=== PATIENT | female | born 1975 | race Caucasian/White ===

== ENCOUNTER 2018-05-01 17:42 | Emergency (ER) | payer BC, SELFPAY ==
[2018-05-01 17:51] VITALS: BP 214/109; PULSE 86; RESP 16; TEMP 36.8; O2SAT 99
--- NOTE | 2018-05-01 18:12 | ED.GENADUL_ITS ---
Disposition Clinical Impression: Finger swelling, Bug bite Disposition: HOME Condition: Stable Instructions: Swollen Joint (ED) Additional Instructions: Encourage rest, ice, elevation. Tylenol and/or ibuprofen as needed for discomfort. You appear to have a bug bite on the lateral aspect of her finger. This may have been what caused the swelling. If you develop redness, warmth, drainage, fever/chills, increased pain or other new/worsening symptoms please seek care urgently once again. Follow-up with primary care in 1 week if symptoms have not resolved. Referrals: Iglesia Luke MD [Primary Care Provider] - Medical Decision Making - Medical Decision Making Patient presents today with chief complaint of swelling to the proximal fifth digit on her right hand. On exam, pain and visualize what appears to be a bug bite along the ulnar side of the digit. She does have some mild circumferential soft tissue swelling around the digit. No pain with palpation. Ligamentously intact on exam. Good extension flexion of the digit against resistance. No sensory deficit. No evidence of trauma. No apparent palpation proximally over the fifth metacarpal. Advised the patient that at this time, the swelling appears to be most consistent with bug bite. Patient reports that the swelling has been improving. Do not feel that any acute intervention is warranted. Advised rest, ice, elevation. Advised Tylenol and/or ibuprofen as needed for discomfort. Patient's blood pressure was noted to be elevated at 219 /109. Patient reported to nursing staff that she expected to be elevated as it typically is. When she was here last blood pressure is. At times he was here last hemoglobin was 6 and she was admitted for abnormal uterine bleeding. Blood pressure was rechecked and found to be 166/90. This is within the patient 's typical range. Advised that she follow-up with primary care next week if symptoms persist and to discuss blood pressure. We discussed new/worsening symptoms when to seek care urgently once again. All of her questions and concerns were addressed and she is in agreement this plan. History of Present Illness - General Chief complaint: Orthopedic Stated complaint: SWOLLEN/PAINFUL FINGER Time Seen by Provider: 05/01/18 17:43 Source: patient, RN notes reviewed Mode of arrival: ambulatory Limitations: no limitations - History of Present Illness Initial comments: This is a 43-year-old [id number] female presenting today with chief complaint of swelling fifth digit of the right hand. She denies any trauma. Reports the swelling came on insidiously while at work today. She denies any pain. No altered sensation. Denies any new exposure. Patient reports that overall the swelling has improved since she initially noticed it. Has not attempted any treatment for this. - Related Data Ibuprofen [Advil] 200 mg PO PRN 06/12/15 Multivitamin [Daily Multiple Vitamin] 1 each PO DAILY 02/19/17 Iron 28 mg PO BID 03/06/17 Medroxyprogesterone Acetate 20 mg PO DAILY #30 tab 02/12/18 Aspirin/Acetaminophen/Caffeine [Excedrin Extra Strength Caplet] 2 tab PO PRN PRN 05/01/18 Allergies Allergy/AdvReac Type Severity Reaction Status Date / Time Sulfa (Sulfonamide AdvReac Intermediate GI problems Unverified 05/01/18 17:54 Antibiotics) Review of Systems Constitutional: no symptoms reported Respiratory: no symptoms reported Musculoskeletal: as per HPI Skin: as per HPI. denies: rash, lesions, change in color Neurological: as per HPI Past Medical History - Past Medical History Menorrhagia, anemia General Exam - General Limitations: no limitations General appearance: alert, in no apparent distress - Respiratory Respiratory exam: Present: normal lung sounds bilaterally. Absent: respiratory distress - Cardiovascular Cardiovascular Exam: Present: regular rate, normal rhythm, normal heart sounds - Extremities Exam Extremities exam: Present: full ROM, normal capillary refill, joint swelling. Absent: normal inspection (On exam, patient is noted to have minimal swelling to the proximal aspect of the fifth digit right hand. Along the ulnar side of the digit is what appears to be a bug bite with a circumscribed small area of erythema with central punctate wound.), tenderness - Neurological Exam Neurological exam: Present: alert, normal gait. Absent: motor sensory deficit - Psychiatric Psychiatric exam: Present: normal affect, normal mood - Skin Skin exam: Present: warm, dry. Absent: normal color (As above) Course Vital Signs - 24 hr 05/01/18 17:51 Temperature 36.8 C Pulse 86 Respiratory 16 Rate Blood Pressure 214/109 Pulse Oximetry 99
[2018-05-01 18:25] VITALS: BP 166/90
== END 2018-05-01 18:37 | disposition home or self-care (01) ==
PROVIDERS: Emergency Provider Emergency Medicine; PCP Internal Medicine
DX: S60.476A Other superficial bite of right little finger, initial encounter (principal); M79.89 Other specified soft tissue disorders; W57.XXXA Bitten or stung by nonvenomous insect and other nonvenomous arthropods, initial encounter
CPT/HCPCS: 99282

== ENCOUNTER 2018-05-08 16:55 | Outpatient (REF) | payer BC, SELFPAY ==
[2018-05-08 22:45] LABS: Abs Immature Grans 0.03 k/cumm (0.0-0.09); Absolute Basophil Count 0.08 k/cumm (0.0-0.2); Absolute Eosinophil Count 0.35 k/cumm (0.0-0.7); Absolute Lymphocyte Count 2.07 k/cumm (1.2-3.4); Absolute Monocyte Count 0.73 k/cumm (0.11-0.7); Absolute Neutrophil Count 8.55 k/cumm (1.2-6.7); Basophils % 0.7; HCT 43.6 % (36.0-46.0); HGB 13.3 g/dL (12.0-15.5); Immature Grans % 0.3; Lymphocytes % 17.5; Mean Corp. HGB Concentration 30.5 g/dL (32.0-36.0); Mean Corpuscular Hemoglobin 23.4 pg (27.0-33.0); Mean Corpuscular Volume 76.6 fL (80-95); Mean Platelet Volume 10.2 fL (8.0-11.0); Monocytes % 6.2; Neutrophils % 72.3; Platelet Count 245 x1000/uL (130-400); RBC 5.69 m/cumm (4.00-5.20); RBC Distribution Width 16.2 % (11.7-14.6); White Blood Cell Count 11.83 k/cumm (4.4-10.8)
[2018-05-08 22:48] LABS: Iron 23 ug/dL (50-175); Total Iron Binding Capacity 426 ug/dL (250-450); Transferrin Sat 5 % (15-50)
[2018-05-08 23:00] LABS: ALT 27 U/L (12-78); AST 18 U/L (15-37); BUN 12 mg/dL (7-18); CREATININE 0.92 mg/dL (0.55-1.02); Calcium 8.6 mg/dL (8.5-10.1); Chloride 106 mmol/L (98-107); Cholesterol 180 mg/dL (50-200); Ferritin 19 ng/mL (8-388); Glucose 103 mg/dL (70-100); HDL Cholesterol 48 mg/dL (40-60); LDL CHOLESTEROL 116 mg/dL (<100); Potassium 4.1 mmol/L (3.5-5.1); Sodium 141 mmol/L (136-145); Triglyceride 135 mg/dL (30-150)
== END 2018-05-08 16:56 ==
LOC: NCHCN 16:55
PROVIDERS: PCP Internal Medicine; Visit Provider Nurse Practitioner Family
DX: D64.9 Anemia, unspecified (principal); M79.604 Pain in right leg; R01.1 Cardiac murmur, unspecified; I10 Essential (primary) hypertension; R22.9 Localized swelling, mass and lump, unspecified
CPT/HCPCS: 80048; 80061; 83721; 82728; 83540; 83550; 84450; 84460; 85025

== ENCOUNTER 2018-10-27 08:53 | Outpatient (REF) | payer BC, SELFPAY ==
[2018-10-27 13:49] LABS: HCT 41.1 % (36.0-46.0); HGB 13.6 g/dL (12.0-15.5); Mean Corp. HGB Concentration 33.1 g/dL (32.0-36.0); Mean Corpuscular Hemoglobin 28.6 pg (27.0-33.0); Mean Corpuscular Volume 86.5 fL (80-95); Mean Platelet Volume 10.3 fL (8.0-11.0); Platelet Count 180 x1000/uL (130-400); RBC 4.75 m/cumm (4.00-5.20); RBC Distribution Width 13.6 % (11.7-14.6); White Blood Cell Count 8.82 k/cumm (4.4-10.8)
[2018-10-27 14:15] LABS: Iron 58 ug/dL (50-175)
[2018-10-27 14:26] LABS: TSH (W/Ref FT4) 1.46 uIU/mL (0.358-3.74)
== END 2018-10-27 09:13 ==
LOC: NCHCN 08:53
PROVIDERS: PCP Internal Medicine; Visit Provider Nurse Practitioner Family
DX: I10 Essential (primary) hypertension (principal); D64.9 Anemia, unspecified; F41.9 Anxiety disorder, unspecified; N92.0 Excessive and frequent menstruation with regular cycle; E66.9 Obesity, unspecified
CPT/HCPCS: 85027; 83540; 84443

== ENCOUNTER 2019-01-14 17:22 | Outpatient (REF) | payer BC, SELFPAY ==
--- NOTE | 2019-01-14 16:30 | PAPFT_PTH ---
PATIENT: Sosa Francis LOC: [facility] U#:[id number] AGE/SX: 43/F ROOM: RE01/14/[address]: Iglesia Luke : 1975 BED: DIS: 01/14/2019 SPEC #: [id number] RECD: 01/14/19 17:38 STATUS: NNAMDI REAna #: [id number] MARSHA: 01/14/19 16:[address]: Iglesia Luke DEPT: [facility] Cytology RECD BY: Madison Lujan Tissues: 1 - CX/ENDOCX FOR PAP SMEARS Procedures: PAP THIN PREP/UVM Screening HPV DNA PROBE Comments: [id number]
== END 2019-01-14 17:42 ==
LOC: LBN 17:22
PROVIDERS: PCP Internal Medicine; Visit Provider Internal Medicine
DX: Z12.4 Encounter for screening for malignant neoplasm of cervix (principal); Z11.51 Encounter for screening for human papillomavirus (HPV)
CPT/HCPCS: 88142; 87624

== ENCOUNTER 2019-02-16 01:05 | Outpatient (CLI) | payer BC, SELFPAY ==
--- NOTE | 2019-02-16 06:53 | DI.US_ITS ---
SYMPTOM/DIAGNOSIS: INTRAMURAL FIBROIDS, CHECK SIZE D25.5 PELVIC ULTRASOUND: A transabdominal and transvaginal examination was carried out. The uterus measures 10.6 x 6.1 x 6.4 cm with an endometrial stripe thickness of 18.2 mm. An anterior fundal fibroid measures 1.8 x 1.6 x 2.2 cm Nabothian cysts are identified, the largest of which has a diameter of 2 cm. The right ovary was not visualized. The left ovary measures 5.5 x 3.8 x 5.6 cm and contains a 4.4 x 3.7 x 4.6 cm cyst. The kidneys are unremarkable. There is no evidence of abdominal free fluid. SUMMARY: Suboptimal examination due to the patient's body habitus revealing a 1.8 x 1.6 x 2.2 cm fibroid and a 4.4 x 3.7 4.6 cm left ovarian cyst. Note is made of nonvisualization of the right ovary.
--- NOTE | 2019-02-16 09:17 | DI.MAMMO_ITS ---
SYMPTOM/DIAGNOSIS: SCREENING, Z12.31 MAMMOGRAMS: Mammograms were interpreted according to the usual protocol including computer analysis with CAD system, tomosynthesis and C view imaging. Comparison is with prior examinations. No suspicious masses or microcalcifications are seen. There is no definite evidence of malignancy. IMPRESSION: Negative mammogram. Routine screening is recommended. Category 1, breast density C. MQSA ASSESSMENT OF FINDINGS: Negative. Category 1. Patient will receive a letter notifying them of these results. Bi-RADS category C. The breasts are heterogeneously dense, which may obscure small masses.
== END 2019-02-16 01:25 ==
PROVIDERS: PCP Internal Medicine; Visit Provider Obstetrics & Gynecology
DX: Z12.31 Encounter for screening mammogram for malignant neoplasm of breast (principal); D25.1 Intramural leiomyoma of uterus; N83.292 Other ovarian cyst, left side
CPT/HCPCS: 77063; 77067; 76830; 76856

== ENCOUNTER 2019-05-13 10:49 | Emergency (ER) | payer BC, SELFPAY ==
[2019-05-13 10:51] VITALS: BP 167/80; PULSE 61; RESP 16; TEMP 36.7; O2SAT 98
--- NOTE | 2019-05-13 10:55 | ED.GENADUL_ITS ---
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 Clinical Impression: Dysfunctional uterine bleeding, Uterine fibroid Primary Care Provider: Iglesia Luke ED Provider: Madelaine Roberts Home Meds and New Rx's Prescriptions: Continued metoprolol succinate 100 mg cap,sprinkle,ER 24hr dose pack 100 mg PO DAILY RF: 0 multivitamin [Daily Multiple] 1 EACH tablet 1 ea PO DAILY RF: 0 iron 18 MG tablet 28 mg PO BID RF: 0 Aspirin/Acetaminophen/Caffeine [Excedrin Extra Strength Caplet] 1 EACH tablet 2 tab PO PRN PRNRF: 0 Discharge Instructions Instructions: Dysfunctional Uterine Bleeding (ED), Uterine Fibroids (ED) Additional Instructions: Drink plenty of fluids and get plenty of rest. 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 If the tablet is 10 mg, take 2 tabs once daily. Call the ASSIGNMENT DESK EDITOR office today to schedule a follow-up appointment for reevaluation next week as an Emergency Department follow-up exam. Return to the emergency department if you develop any worsening or new concerning symptoms. Discharge Data Discharge Physician: Madelaine Roberts Medical Decision Making 1050 -- 44-year-old female with history of uterine fibroids and dysfunctional uterine bleeding for several years who presents with persistent light vaginal bleeding over the past 3 weeks, with large clots over the past several days. Vitals within normal limits. She appears nontoxic but pale. Abdomen soft and nontender. Pelvic exam notes vaginal bleeding with moderate size clot but cervix appears normal and no adnexal tenderness noted. Pelvic ultrasound from February 2019 noted a small uterine fibroid as well as a moderate sized left ovarian cyst. We will check hemoglobin as she has had a history of anemia with blood transfusions due to heavy vaginal bleeding in the past and call ASSIGNMENT DESK EDITOR. [id number] --labs reviewed. Hemoglobin 11. Hematocrit 37.3. White blood cell count 11. Urinalysis notes blood but negative leukocyte esterase and nitrate. Case discussed with Dr. Suggs -she called in a prescription for Provera yesterday to patient's pharmacy which may have been for 10 mg. If so, recommend patient take 20 mg total daily. 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 Suggs. Dr. Suggs advised patient to call for a follow-up appointment for next week. Patient advised to return here with any worsening or new concerning symptoms. Medical Records Medical records reviewed: Yes I reviewed the patient's medical records. Lab Data Lab results reviewed: Yes I reviewed the patient's lab results. Laboratory Tests Range/Units 05/13/19 05/13/19 05/13/19 11:15 11:15 11:15 WBC (4.4-10.8) k/cumm 11.01 H RBC (4.00-5.20) m/cumm 4.61 Hgb (12.0-15.5) g/dL 11.5 L Hct (36.0-46.0) % 37.3 MCV (80-95) fL 80.9 MCH (27.0-33.0) pg 24.9 L MCHC (32.0-36.0) g/dL 30.8 L RDW (11.7-14.6) % 17.2 H Plt Count (130-400) x1000/uL 313 MPV (8.0-11.0) fL 9.5 Immature Gran % 0.5 Neutrophils % 68.1 Lymphocytes % 21.8 Monocytes % 6.2 Eosinophils % 2.8 Basophils % 0.6 Absolute Neutrophils (1.2-6.7) k/cumm 7.50 H Absolute Lymphocytes (1.2-3.4) k/cumm 2.40 Absolute Monocytes (0.11-0.7) k/cumm 0.68 Absolute Eosinophils (0.0-0.7) k/cumm 0.31 Absolute Basophils (0.0-0.2) k/cumm 0.07 Sodium (136-145) mmol/L 138 Potassium (3.5-5.1) mmol/L 3.4 L Chloride (98-107) mmol/L 103 Carbon Dioxide (21.0-32.0) mmol/L 26.7 Anion Gap (3-11) mmol/L 8.3 BUN (7-18) mg/dL 10 Creatinine (0.55-1.02) mg/dL 1.01 Estimated GFR/1.73 m2 (mL/min/1.73m2) 59.01 Glucose (70-100) mg/dL 114 H Calcium (8.5-10.1) mg/dL 8.7 Total Bilirubin (0.2-1.0) mg/dL 0.3 AST (15-37) U/L 36 ALT (14-59) U/L 49 Alkaline Phosphatase (46-116) U/L 98 Total Protein (6.4-8.2) g/dL 7.2 Albumin (3.4-5.0) g/dL 3.4 Urine Color (Yellow) Urine Clarity (Clear) Urine pH (5-8) Ur Specific Mchenry (1.005-1.025) Urine Protein (Negative) mg/dL Urine Ketones (Negative) mg/dL Urine Blood (Negative) Urine Nitrite (Negative) Urine Bilirubin (Negative) Urine Urobilinogen (Up TO 0.2) EU/dL Ur Leukocyte Esterase (Negative) Urine RBC (0-2) Urine WBC Ur Epithelial Cells Urine Crystals Urine Bacteria Urine Mucus Ur Culture Indicated? Urine Glucose (Negative) mg/dL Patient ABO/Rh O Positive Antibody Screen Negative Range/Units 05/13/19 11:30 WBC (4.4-10.8) k/cumm RBC (4.00-5.20) m/cumm Hgb (12.0-15.5) g/dL Hct (36.0-46.0) % MCV (80-95) fL MCH (27.0-33.0) pg MCHC (32.0-36.0) g/dL RDW (11.7-14.6) % Plt Count (130-400) x1000/uL MPV (8.0-11.0) fL Immature Gran % Neutrophils % Lymphocytes % Monocytes % Eosinophils % Basophils % Absolute Neutrophils (1.2-6.7) k/cumm Absolute Lymphocytes (1.2-3.4) k/cumm Absolute Monocytes (0.11-0.7) k/cumm Absolute Eosinophils (0.0-0.7) k/cumm Absolute Basophils (0.0-0.2) k/cumm Sodium (136-145) mmol/L Potassium (3.5-5.1) mmol/L Chloride (98-107) mmol/L Carbon Dioxide (21.0-32.0) mmol/L Anion Gap (3-11) mmol/L BUN (7-18) mg/dL Creatinine (0.55-1.02) mg/dL Estimated GFR/1.73 m2 (mL/min/1.73m2) Glucose (70-100) mg/dL Calcium (8.5-10.1) mg/dL Total Bilirubin (0.2-1.0) mg/dL AST (15-37) U/L ALT (14-59) U/L Alkaline Phosphatase (46-116) U/L Total Protein (6.4-8.2) g/dL Albumin (3.4-5.0) g/dL Urine Color (Yellow) Red Urine Clarity (Clear) Cloudy Urine pH (5-8) 6.0 Ur Specific Mchenry (1.005-1.025) 1.015 Urine Protein (Negative) mg/dL >=300 H Urine Ketones (Negative) mg/dL Negative Urine Blood (Negative) Large H Urine Nitrite (Negative) Negative Urine Bilirubin (Negative) Negative Urine Urobilinogen (Up TO 0.2) EU/dL 0.2 Ur Leukocyte Esterase (Negative) Negative Urine RBC (0-2) >50 H Urine WBC Not Applicable Ur Epithelial Cells Not Applicable Urine Crystals Not Applicable Urine Bacteria Not Applicable Urine Mucus Not Applicable Ur Culture Indicated? No Urine Glucose (Negative) mg/dL Negative Patient ABO/Rh Antibody Screen HPI General Mode of arrival: ambulatory . Date/Time Provider Initiated Documentation: 05/13/19 10:52 . Limitations to Documentation: no limitations . Information obtained by: patient . HPI Narrative: Patient is a 44-year-old female with a history of uterine fibroids and dysfunctional uterine bleeding for several years who presents with vaginal bleeding for the last 3 weeks. She states the bleeding has many been light for the last three weeks but with clots over the past several days. Patient was admitted here last year with heavy vaginal bleeding and anemia and received a blood transfusion. She states she had been on progesterone for 1 month and stopped it on her own because she did not want to take it any longer. She states she called her boarder steam Dr. Suggs yesterday and she offered to place her back on progesterone, but patient states her bleeding ceased last night but then she became concerned about her increasing clots today and possible low hemoglobin so she came to the ER for evaluation today. She denies any fever, abdominal pain, chest pain or shortness of breath or dizziness. She is unsure of her last menstrual period but states since her admission last year, she has had persistent periods that are light but lasting longer than normal. Related Data Home Medications Medication Instructions Recorded Confirmed multivitamin [Daily Multiple] 1 ea PO DAILY 02/19/17 05/13/19 iron 28 mg PO BID 03/06/17 05/13/19 Aspirin/Acetaminophen/Caffeine 2 tab PO PRN PRN 05/01/18 05/13/19 [Excedrin Extra Strength Caplet] metoprolol succinate 100 mg 100 mg PO DAILY 01/14/19 05/13/19 capsule sprinkle, ext. release 24 hr Allergies Allergy/AdvReac Type Severity Reaction Status Date / Time Sulfa (Sulfonamide AdvReac Intermediate GI problems Unverified 01/14/19 15:45 Antibiotics) General Stated Complaint: ASSIGNMENT DESK EDITOR EPI: 3 Review of Systems Review of Systems All systems reviewed & are unremarkable except as noted in HPI and below Constitutional Reports as per HPI, Denies chills and Denies fever(s) Eyes Denies blurry vision ENT Denies dizziness, Denies sore throat and Denies throat swelling Cardiovascular Denies chest pain and Denies dyspnea Respiratory Denies cough and Denies dyspnea Gastrointestinal Denies abdominal pain, Denies diarrhea and Denies vomiting Genitourinary Denies hematuria, Reports menorrhagia and Denies dysuria Musculoskeletal Denies back pain and Denies numbness Integumentary/Breasts Denies lesions and Denies rash Neurologic Denies dizziness, Denies focal weakness and Denies numbness Allergic/Immunologic Denies throat swelling [facility] Medical History Dysfunctional uterine bleeding (Acute) HTN (hypertension) (Chronic) Obesity (Chronic) Uterine fibroid (Acute) Social History Smoking/Tobacco Use Status: Never Alcohol Intake: current Drug use: Never Substance use type: does not use Do you feel safe at home: Yes Do you feel safe in your relationship?: Yes Female Reproductive History Menstrual Age of Menarche: 11 Duration of menses: >10 days (Now periods are about 2 weeks long) control method: condoms History History 1 Para 1 Hx # Term Pregnancies Multiple births Hx # Pregnancies Ectopic pregnancies AB induced Hx Number of Living Children 1 AB spontaneous Exam Const General: cooperative, healthy appearing and no acute distress HENMT Head: normal to inspection Face and sinus: normal facial exam Eyes General: appearance normal, both eyes and all related structures Conjunctivae: conjunctival abnormality bilaterally pallor EOM: EOM intact bilaterally Neck Neck: normal visual inspection and No submandibular swelling Lymphatic: no lymphadenopathy noted Chest Chest: normal inspection of the chest and no tenderness Resp Effort & Inspection: normal respiratory effort and able to speak in complete sentences Auscultation: clear to auscultation bilaterally Cardio Rate: regular rate Rhythm: regular rhythm GI Inspection: normal to inspection Palpation: soft, not firm, not rigid and nontender Auscultation: normal bowel sounds External Female Exam: external appearance normal Speculum Exam - Cervix: normal appearance of the cervix and other (mild to moderate bleeding) Bimanual Exam- Vagina & Uterus: normal bimanual exam Bimanual Exam- Adnexa, other: no adnexal masses (non palpable. ) and no tenderness Skin General skin exam: no rashes or lesions noted Neuro General: alert, awake and oriented x3 Cognition: normal cognition Speech: speech normal Motor: muscle tone normal throughout Sensory Exam: no sensory deficits noted Extrem General: normal to inspection, full ROM, normal capillary refill, no calf tenderness bilaterally and no edema Psych Appearance: grossly normal Mental Status: mental status grossly normal Speech and Movement: speech and movement normal Affect: normal affect Course Vital Signs Temperature 98.1 F 05/13/19 10:51 Pulse 61 05/13/19 10:51 Respiratory Rate 16 05/13/19 10:51 Pulse Oximetry 98 05/13/19 10:51 Temperature 98.1 F 05/13/19 10:51 Temperature Source Temporal Artery Scan 05/13/19 10:51 Pulse 61 05/13/19 10:51 Respiratory Rate 16 05/13/19 10:51 Blood Pressure Position Sitting 05/13/19 10:51 Pulse Oximetry 98 05/13/19 10:51 Oxygen Delivery Method Room Air 05/13/19 10:51 Oxygen Flow Rate 0 05/13/19 10:51 Pain Level 0 05/13/19 10:51
[2019-05-13 11:43] LABS: Abs Immature Grans 0.06 k/cumm (0.0-0.09); Absolute Basophil Count 0.07 k/cumm (0.0-0.2); Absolute Eosinophil Count 0.31 k/cumm (0.0-0.7); Absolute Monocyte Count 0.68 k/cumm (0.11-0.7); Basophils % 0.6; Eosinophils % 2.8; HCT 37.3 % (36.0-46.0); HGB 11.5 g/dL (12.0-15.5); Immature Grans % 0.5; Lymphocytes % 21.8; Mean Corp. HGB Concentration 30.8 g/dL (32.0-36.0); Mean Corpuscular Hemoglobin 24.9 pg (27.0-33.0); Mean Corpuscular Volume 80.9 fL (80-95); Mean Platelet Volume 9.5 fL (8.0-11.0); Monocytes % 6.2; Neutrophils % 68.1; Platelet Count 313 x1000/uL (130-400); RBC 4.61 m/cumm (4.00-5.20); RBC Distribution Width 17.2 % (11.7-14.6); White Blood Cell Count 11.01 k/cumm (4.4-10.8)
[2019-05-13 11:49] LABS: Bilirubin Negative (Negative); Blood Large (Negative); Clarity Cloudy (Clear); Glucose Negative (Negative); Ketones Negative (Negative); Leukocyte Esterase Negative (Negative); Nitrite Negative (Negative); Specific Gravity 1.015 (1.005-1.025); Urobilinogen 0.2 EU/dL (Up TO 0.2)
[2019-05-13 11:50] LABS: ALT 49 U/L (14-59); AST 36 U/L (15-37); Albumin 3.4 g/dL (3.4-5.0); Alkaline Phosphatase 98 U/L (46-116); Anion Gap 8.3 mmol/L (3-11); BUN 10 mg/dL (7-18); Bilirubin, Total 0.3 mg/dL (0.2-1.0); CO2 26.7 mmol/L (21.0-32.0); CREATININE 1.01 mg/dL (0.55-1.02); Calcium 8.7 mg/dL (8.5-10.1); Chloride 103 mmol/L (98-107); Estimated GFR 59.01 (mL/min/1.73m2); Glucose 114 mg/dL (70-100); Potassium 3.4 mmol/L (3.5-5.1); Sodium 138 mmol/L (136-145); Total Protein 7.2 g/dL (6.4-8.2)
[2019-05-13 11:53] LABS: RBC >50 (0-2)
[2019-05-13 11:54] LABS: C & S Indicated? No
[2019-05-13 12:20] VITALS: BP 141/90; PULSE 64; RESP 14; TEMP 36.6; O2SAT 99
== END 2019-05-13 12:25 | disposition home or self-care (01) ==
PROVIDERS: Emergency Provider Physician Assistant; PCP Internal Medicine
DX: N93.8 Other specified abnormal uterine and vaginal bleeding (principal); D25.9 Leiomyoma of uterus, unspecified; I10 Essential (primary) hypertension
CPT/HCPCS: 36415; 80053; 81025; 86850; 86900; 86901; 99284; 81003; 81015; 85025

== ENCOUNTER 2019-08-12 09:18 | Outpatient (REF) | payer BC, SELFPAY ==
[2019-08-12 11:40] LABS: Anion Gap 10.8 mmol/L (3-11); BUN 10 mg/dL (7-18); CO2 26.2 mmol/L (21.0-32.0); CREATININE 0.85 mg/dL (0.55-1.02); Calcium 8.8 mg/dL (8.5-10.1); Chloride 104 mmol/L (98-107); Glucose 167 mg/dL (74-106); Potassium 4.1 mmol/L (3.5-5.1); Sodium 141 mmol/L (136-145)
== END 2019-08-12 09:38 ==
LOC: NCHCN 09:18
PROVIDERS: PCP Internal Medicine; Visit Provider Nurse Practitioner Family
DX: I10 Essential (primary) hypertension (principal); D64.9 Anemia, unspecified; F41.9 Anxiety disorder, unspecified; G47.33 Obstructive sleep apnea (adult) (pediatric); R07.89 Other chest pain; N92.0 Excessive and frequent menstruation with regular cycle; E66.9 Obesity, unspecified
CPT/HCPCS: 80048

== ENCOUNTER 2021-01-24 08:37 | Outpatient (REF) | payer BC, SELFPAY ==
[2021-01-24 12:51] LABS: Abs Immature Grans 0.04 10^3/uL (0.0-0.06); Absolute Basophil Count 0.07 10^3/uL (0.0-0.2); Absolute Eosinophil Count 0.32 10^3/uL (0.0-0.7); Absolute Lymphocyte Count 1.91 10^3/uL (1.2-3.4); Absolute Monocyte Count 0.65 10^3/uL (0.1-0.8); Absolute Neutrophil Count 7.11 10^3/uL (1.2-6.7); Basophils % 0.7; Eosinophils % 3.2; HCT 42.3 % (36.0-46.0); HGB 12.9 g/dL (11.2-15.7); Immature Grans % 0.4; Lymphocytes % 18.9; MCH 23.8 pg (27.0-33.0); MCHC 30.5 % (32.0-36.0); MPV 9.8 fL (8.0-11.0); Monocytes % 6.4; Neutrophils % 70.4; Nucleated RBC 0 %; Platelet Count 231 10^3/uL (130-400); RBC 5.42 10^6/uL (3.93-5.22); RDW 15.2 % (11.7-14.6); RDW-SD 42.2 fL
[2021-01-24 13:57] LABS: ALT 32 U/L (14-59); AST 15 U/L (15-37); Albumin 3.4 g/dL (3.4-5.0); Alkaline Phosphatase 103 U/L (46-116); Anion Gap 7.1 mmol/L (3-11); BUN 9 mg/dL (7-18); Bilirubin, Total 0.4 mg/dL (0.2-1.0); CO2 31.9 mmol/L (21.0-32.0); CREATININE 0.8 mg/dL (0.55-1.02); Calcium 8.9 mg/dL (8.5-10.1); Calculated LDL 105 mg/dL (<100); Chloride 103 mmol/L (98-107); Cholesterol 173 mg/dL (<200); Ferritin 18 ng/mL (8-252); Glucose 105 mg/dL (74-106); HDL Cholesterol 47 mg/dL (40-60); Potassium 4.4 mmol/L (3.5-5.1); Sodium 142 mmol/L (136-145); Total Protein 6.7 g/dL (6.4-8.2); Triglyceride 106 mg/dL (<150)
[2021-01-24 14:08] LABS: Iron 32 ug/dL (50-170); Total Iron Binding Capacity 366 ug/dL (250-450); Transferrin Sat 9 % (15-50)
== END 2021-01-24 08:38 | disposition home or self-care (01) ==
LOC: NCHCN 08:37
PROVIDERS: PCP Internal Medicine; Visit Provider Nurse Practitioner Family
DX: R73.9 Hyperglycemia, unspecified (principal); D64.9 Anemia, unspecified; I10 Essential (primary) hypertension; E66.9 Obesity, unspecified
CPT/HCPCS: 80053; 80061; 82728; 83540; 83550; 85025

== ENCOUNTER 2021-12-21 18:47 | Outpatient (REF) | payer BC, SELFPAY ==
[2021-12-21 22:02] LABS: Abs Immature Grans 0.24 10^3/uL (0.0-0.06); Absolute Basophil Count 0.14 10^3/uL (0.0-0.2); Absolute Eosinophil Count 0.37 10^3/uL (0.0-0.7); Absolute Lymphocyte Count 1.71 10^3/uL (1.2-3.4); Absolute Neutrophil Count 7.02 10^3/uL (1.2-6.7); Basophils % 1.4; Eosinophils % 3.6; HCT 43.5 % (36.0-46.0); HGB 13.3 g/dL (11.2-15.7); Immature Grans % 2.3; Lymphocytes % 16.6; MCHC 30.6 % (32.0-36.0); MCV 81.8 fL (80-95); MPV 10.3 fL (8.0-11.0); Monocytes % 7.8; Neutrophils % 68.3; Platelet Count 276 10^3/uL (130-400); RBC 5.32 10^6/uL (3.93-5.22); RDW 14.8 % (11.7-14.6); RDW-SD 43.9 fL; WBC 10.28 10^3/uL (4.4-10.8)
[2021-12-21 22:11] LABS: Iron 23 ug/dL (50-170); Total Iron Binding Capacity 329 ug/dL (250-450); Transferrin Sat 7 % (15-50)
[2021-12-21 22:15] LABS: Hemoglobin A1C 6.6 % (<5.7)
[2021-12-21 23:04] LABS: Anion Gap 11.1 mmol/L (3-11); BUN 12 mg/dL (7-18); CO2 27.9 mmol/L (21.0-32.0); CREATININE 0.8 mg/dL (0.55-1.02); Calcium 9.1 mg/dL (8.5-10.1); Chloride 102 mmol/L (98-107); Ferritin 104 ng/mL (8-252); Glucose 192 mg/dL (74-106); Potassium 4.1 mmol/L (3.5-5.1); Sodium 141 mmol/L (136-145); TSH (W/Ref FT4) 1.33 uIU/mL (0.36-3.74); Vitamin B12 625 pg/mL (193-986)
[2021-12-24 10:16] LABS: Hepatitis C Ab w Rflx HCV PCR Negative (Negative)
[2021-12-24 11:30] LABS: HIV-1/2 Ag & Ab Screen Negative (Negative)
== END 2021-12-21 18:48 | disposition home or self-care (01) ==
LOC: NCHCN 18:47
PROVIDERS: PCP Internal Medicine; Visit Provider Nurse Practitioner Family
DX: D64.9 Anemia, unspecified (principal); M25.561 Pain in right knee; M25.562 Pain in left knee; M54.59 Other low back pain; R73.9 Hyperglycemia, unspecified; G47.33 Obstructive sleep apnea (adult) (pediatric); E66.9 Obesity, unspecified; Z11.4 Encounter for screening for human immunodeficiency virus [HIV]; Z11.59 Encounter for screening for other viral diseases
CPT/HCPCS: 80048; 86803; 87389; 82607; 82728; 83036; 83540; 83550; 84443; 85025

== ENCOUNTER 2023-05-13 17:26 | Outpatient (REF) | payer BC, SELFPAY ==
[2023-05-13 16:45] LABS: Abs Immature Grans 0.03 10^3/uL (0.0-0.06); Absolute Basophil Count 0.09 10^3/uL (0.0-0.2); Absolute Eosinophil Count 0.26 10^3/uL (0.0-0.7); Absolute Lymphocyte Count 1.41 10^3/uL (1.2-3.4); Absolute Monocyte Count 0.47 10^3/uL (0.1-0.8); Absolute Neutrophil Count 5.24 10^3/uL (1.2-6.7); Basophils % 1.2; Eosinophils % 3.5; HCT 40.5 % (36.0-46.0); HGB 11.9 g/dL (11.2-15.7); Immature Grans % 0.4; Lymphocytes % 18.8; MCH 21.6 pg (27.0-33.0); MCHC 29.4 % (32.0-36.0); MCV 74 fL (80-95); MPV 10.1 fL (8.0-11.0); Monocytes % 6.3; Neutrophils % 69.8; Platelet Count 249 10^3/uL (130-400); RDW 15.9 % (11.7-14.6); RDW-SD 41.7 fL
[2023-05-13 17:12] LABS: Diff Comment RBC Morph Reviewed; Microcytosis 1+
[2023-05-13 17:13] LABS: Hypochromasia 1+
[2023-05-13 17:24] LABS: Iron 21 ug/dL (50-170); Total Iron Binding Capacity 418 ug/dL (250-450); Transferrin Sat 5 % (15-50)
[2023-05-13 17:27] LABS: ALT 77 U/L (14-59); AST 46 U/L (15-37); Albumin 3.6 g/dL (3.4-5.0); Alkaline Phosphatase 101 U/L (46-116); Anion Gap 8.9 mmol/L (3-11); BUN 12 mg/dL (7-18); Bilirubin, Total 0.4 mg/dL (0.2-1.0); CO2 27.1 mmol/L (21.0-32.0); CREATININE 0.8 mg/dL (0.55-1.02); Calcium 9.2 mg/dL (8.5-10.1); Calculated LDL 107 mg/dL (<100); Chloride 101 mmol/L (98-107); Cholesterol 175 mg/dL (<200); Estimated GFR 89.71 (mL/min/1.73m2); Ferritin 15 ng/mL (8-252); Glucose 138 mg/dL (74-106); HDL Cholesterol 50 mg/dL (40-60); Potassium 3.9 mmol/L (3.5-5.1); Sodium 137 mmol/L (136-145); Total Protein 6.8 g/dL (6.4-8.2); Triglyceride 93 mg/dL (<150)
== END 2023-05-13 17:27 | disposition home or self-care (01) ==
LOC: NCHCN 17:26
PROVIDERS: PCP Internal Medicine; Visit Provider Nurse Practitioner Family
DX: R53.83 Other fatigue (principal); D64.9 Anemia, unspecified; R73.03 Prediabetes; I10 Essential (primary) hypertension; E66.9 Obesity, unspecified
CPT/HCPCS: 80053; 80061; 82728; 83540; 83550; 85025

== ENCOUNTER 2023-10-13 10:12 | Outpatient (REF) | payer BC, SELFPAY ==
[2023-10-13 15:26] LABS: HCT 45.9 % (36.0-46.0); HGB 14.8 g/dL (11.2-15.7); MCH 26.7 pg (27.0-33.0); MCHC 32.2 % (32.0-36.0); MCV 83 fL (80-95); MPV 9.9 fL (8.0-11.0); Platelet Count 158 10^3/uL (130-400); RBC 5.55 10^6/uL (3.93-5.22); RDW 14.3 % (11.7-14.6); RDW-SD 42.6 fL; WBC 8.25 10^3/uL (4.4-10.8)
[2023-10-13 15:38] LABS: Iron 52 ug/dL (50-170); Total Iron Binding Capacity 343 ug/dL (250-450); Transferrin Sat 15 % (15-50)
[2023-10-13 15:52] LABS: Ferritin 104 ng/mL (8-252)
== END 2023-10-13 10:13 | disposition home or self-care (01) ==
LOC: NCHCN 10:12
PROVIDERS: PCP Internal Medicine; Visit Provider Nurse Practitioner Family
DX: D64.9 Anemia, unspecified (principal); R71.8 Other abnormality of red blood cells
CPT/HCPCS: 85027; 82728; 83540; 83550

== ENCOUNTER → 2023-12-23 01:32 | Outpatient (CLI) | payer BC, SELFPAY ==
--- NOTE | 2023-12-23 07:44 | DI.MAMMO_ITS ---
Exam(s) MAMMO SCREENING EXAM: MAMMO SCREENING CLINICAL HISTORY: SCREENING MAMMO FOR BREAST CANCER Z12.31 TECHNIQUE: Mammograms were interpreted according to the usual protocol including computer analysis w [employer] CAD system, tomosynthesis and C-view imaging. COMPARISON: 2019 FINDINGS: The breasts are composed of heterogeneously dense fibroglandular densities, Breast Density category C . No suspicious masses or suspicious microcalcifications are seen. No skin thickening or abnormal axillary lymph nodes are seen. There has been no significant change from prior exams. IMPRESSION: BI-RADS Category 1, Negative mammogram. Yearly screening mammography is recommended. Breast Density Category C, heterogeneously Dense. The mammogram demonstrates the patient's breast tissue is dense. Dense breast tissue is very common a nd is not abnormal but dense breast tissue can make it harder to find cancer on a mammogram. Also, de nse breast tissue may increase breast cancer risk. This information about the result of the mammogram report was provided to the patient to raise their awareness. Use this report when you speak with the patient about their risks for breast cancer, which includes their family history. At that time, you may recommend additional screening tests (Ultrasound or MRI) as they might be useful based on their r isk. A negative radiographic report should not delay biopsy if a dominant or clinically suspicious mass is present. Up to ten percent of cancers are not identified on mammography. A negative report may reinforce clinical impression. Adenosis and dense breasts may obscure an underlying neoplasm. False positive reports average 6 to 10%.
== END ==
PROVIDERS: PCP Internal Medicine; Visit Provider Nurse Practitioner Family
DX: Z12.31 Encounter for screening mammogram for malignant neoplasm of breast (principal)
CPT/HCPCS: 77063; 77067

== ENCOUNTER 2024-01-29 16:28 | Inpatient (IN) | payer BC, SELFPAY ==
[2024-01-29 16:30] VITALS: BP 176/94; PULSE 82; RESP 20; TEMP 36.6; O2SAT 99
--- NOTE | 2024-01-29 16:30 | RT.EKG_ITS ---
APPROVED REPORT Exam: Resting ECG Reason for Exam: epig. pain Patient Location: E HR:76 bpm ECG Measurements Heart Rate 76 AXIS ND 149 P 44 QRSd 78 QRS 33 QT 372 T 23 QTc 419 Conclusion Sinus rhythm...normal P axis, V-rate 60- 99
--- NOTE | 2024-01-29 18:53 | W.ED.GENAD ---
Discharge Plan Disposition Condition: Stable Discharge Details Chief Complaint: Abd Prob Clinical Impression: Choledocholithiasis with acute cholecystitis Primary Care Provider: Sheela Perkins ED Provider: iLno Eric Home Meds and New Rx's Prescriptions: No Action metoprolol succinate 100 mg tablet extended release 24 hr 100 mg PO DAILY Patient Comments: TAKE 1 TABLET BY MOUTH EVERY DAY lisinopril 10 mg tablet 10 mg PO DAILY Patient Comments: TAKE 1 TABLET BY MOUTH EVERY DAY HPI General Date/Time Provider Initiated Documentation: 01/29/24 16:34. HPI Narrative: 48 year-old female presents to ED today by POV/ambulating with a chief complaint of epigastric/RUQ abdominal pain, nausea, and feels like pressure is pushing upward from her diaphragm- also endorsing pleuritic R sided back pain with deep breathing with onset of the abdominal pain 2 weeks ago pretty severely, but it resolved, then resumed again this morning even worse. Quality described as severe constant boring/aching pain, no radiation to intractable vomiting at this time, denies fever, denies chest pain, denies shortness of breath. Severity is described as 10/10 earlier. Palliating factors include nothing specific. Provoking factors include nothing specific. Events leading up to the incident/Associated Symptoms: Patient denies abdominal surgical history. Patient not anticoagulated. Related Data Home Medications Medication Instructions Recorded Confirmed lisinopril 10 mg tablet 10 mg PO DAILY 01/29/24 01/29/24 metoprolol succinate 100 mg 100 mg PO DAILY 01/29/24 01/29/24 tablet,extended release 24 hr Allergies Allergy/AdvReac Type Severity Reaction Status Date / Time Sulfa (Sulfonamide AdvReac Intermediate GI problems Unverified 01/29/24 16:33 Antibiotics) General Stated Complaint: Abd Prob EPI: 3 Review of Systems All systems reviewed & are unremarkable except as noted in HPI and below Exam Narrative Exam Narrative: GENERAL APPEARANCE: Well-nourished, non-toxic, awake and alert, atraumatic, no acute distress. SKIN: Warm, pink, dry, intact, without rashes/lesions/ulcerations. HEAD: Normocephalic, atraumatic, normal hair distribution for gender/age. EYES: Pupils PERRLA, EOMs intact without nystagmus, normal conjunctiva, no exudates on lids/lashes. ENT: Nares patent, no circumoral cyanosis, no facial swelling NECK: Supple, trachea midline, painless cervical ROM. LUNGS/CHEST: Lungs CTA bilaterally- no rhonchi/rales/wheezes diffusely, non-labored respirations, normal A/P diameter, symmetrical expansion, no chest wall deformity, TTP mid back R sided, feels it in her chest, no crepitus to posterior ribs HEART (CV/PV): Regular rate and rhythm without murmur, no peripheral edema, no JVD. ABDOMEN: Soft, non-distended, no guarding, RUQ tenderness + Muphy's sign, epigastric tenderness, no McBurney's point tenderness, no CVA tenderness bilaterally. MSK: Normal ROM, no swelling/deformity to bilateral UEs or LEs, moving all extremities without weakness, no cyanosis, spine midline without tenderness, normal curvature. NEURO: Mental Status AAOx4 - alert to person, place, time, events No facial droop, no forehead involvement. Motor: No focal weakness - strength 5/5 in bilateral UEs and LEs, proximal and distal, symmetric. Sensory: sensation intact to light touch globally. Gait normal: patient ambulated without ataxia into ED room. PSYCH: euthymic, cooperative, pleasant, appropriate speech Course Vital Signs Vital signs: Vital Signs Temperature 36.6 C 01/29/24 16:30 Pulse 82 01/29/24 16:30 Respiratory Rate 20 01/29/24 16:30 Blood Pressure 176/94 H 01/29/24 16:30 Pulse Oximetry 99 01/29/24 16:30 Temperature 36.6 C 01/29/24 16:30 Temperature Source Skin 01/29/24 16:30 Pulse 82 01/29/24 16:30 Respiratory Rate 20 01/29/24 16:30 Respiratory Effort Normal 01/29/24 16:32 Blood Pressure 176/94 H 01/29/24 16:30 Blood Pressure Position Sitting 01/29/24 16:30 Pulse Oximetry 99 01/29/24 16:30 Oxygen Delivery Method Room Air 01/29/24 16:30 Oxygen Flow Rate 0 01/29/24 16:30 Pain Level 7 01/29/24 16:30 Medical Decision Making This dictation utilizes [id number] dictation software and may contain unedited grammatical errors. 48 y/o F presents to ED today with a chief complaint of RUQ/epigastric abdominal pain, severe, denies fever, endorses nausea, not vomiting. Patient had worst of the pain this morning, but is fairly constant. Patient endorsed an episode 2 weeks ago of similar pain. Risk factors of obesity. Patients' medical history: Hypertension, dysfunctional uterine bleeding secondary to fibroid. Family and social history: Lives independently, poor exercise habits, no sick contacts no recent travel. Pertinent exam findings / vital signs include positive Zuniga sign with right upper quadrant and epigastric tenderness, benign cardiopulmonary exam, no respiratory distress, nontoxic vitals. Differential / pathologies of concern include biliary colic, gastritis, SBO, PE, ACS. Diagnostic studies of: -CBC, CMP, lipase, lactate, procalcitonin, troponin, urinalysis, BMP, D-dimer, conjugated bilirubin, CT abdomen pelvis with contrast, CT chest PE study, EKG. -CBC shows leukocytosis of 12, no anemia -D-dimer elevated to 909, will rule out PE -Lactate 1.3 -CMP is fairly benign, the liver panel is altered with elevated bilirubin at 2.6, conjugated bilirubin elevated at 1.8, LFTs significantly elevated in the mid 300s -Procalcitonin negative -Troponin negative and BNP negative, do not suspect ACS -Lipase negative -UA shows no sign of UTI -CT of the abdomen and pelvis shows cholelithiasis and choledocholithiasis with biliary ductal dilatation, as well as a 3.5 cm left lobe liver mass as well as a 3.5 cm right adnexal cyst -Numerous calcified gallstones in the gallbladder fundus as well as the neck of the gallbladder of significant size and small stones in the distal common bile duct with dilatation to 9 mm and gallbaldder wall thickening. Interventions of: -IVF LR, 4.5gm Zosyn, Gen Surg Consult for transfer decision. Dr. Wagner recommends [facility] GI consult, if they can ERCP tomorrow we may admit here, but need definitive time and plan for this procedure. Otherwise transfer elsewhere. Consult to [facility] placed at 2230. ED Course/Assessment/Plan: 48-year-old obese female presents with severe right upper quadrant/epigastric abdominal pain, had an episode of this 2 weeks ago that resolved likely with migration of her gallstones presenting as biliary colic, this pain returned today and much worse fashion, she is nauseated but not vomiting, she is overall resting comfortably in the ED at this time and has gotten empiric Zosyn as well as IV fluids and has not required analgesia here in ED. consulted with general surgery Dr. Wagner, he may keep the patient here if we can definitively arrange for down and back ERCP at [facility] tomorrow otherwise the patient will need to be transferred. [facility] GI Dr. Nassar cannot perform ESRP tomorrow, due to LFT elevation - patient should likely be transferred for definitive care due to risk of deterioration Patient signed out to oncoming provider Dr. Angelo at shift change with transfer calls pending. Findings not consistent with sepsis, gallstone pancreatitis. Disposition of Choledocholithiasis with Acute Cholecystitis. Patient verbalized understanding of the plan and return to ED criteria and engaged in shared decision making. Medical Records Medical records reviewed: Yes I reviewed the patient's medical records. Imaging Data Radiologic Study: Attestation: I personally reviewed and interpreted this imaging study as follows: Imaging: CT Scan Radiologist's impression: Exam: CT Abdomen And Pelvis With Contrast Exam date and time: 01/29/2024 8:21 PM Age: 48 years old Clinical indication: Other: Elevated lfts ruq tenderness; Abdominal pain TECHNIQUE: Imaging protocol: Computed tomography of the abdomen and pelvis with contrast. Contrast material: OMNI 350; Contrast volume: 100 ml; Contrast route: INTRAVENOUS (IV); COMPARISON: US pelvis 02/16/2019 8:16 AM FINDINGS: Liver: 3.5 cm hypoattenuating circumscribed mass in the lateral segment of the left lobe liver with a nonspecific appearance. Liver is otherwise unremarkable. Gallbladder and bile ducts: Numerous calcified gallstones of varying sizes in the gallbladder fundus as well as with the neck of the gallbladder. Several small stones noted in the distal common bile duct mild dilation of the common duct measuring approximately 9 mm. Moderate diffuse gallbladder wall thickening. Pancreas: Normal. No ductal dilation. Spleen: Normal. No splenomegaly. Adrenal glands: Normal. No mass. Kidneys and ureters: Normal. No hydronephrosis. Stomach and bowel: Unremarkable. No obstruction. No mucosal thickening. Appendix: No evidence of appendicitis. Intraperitoneal space: Unremarkable. No free air. No significant fluid collection. Vasculature: Unremarkable. No abdominal aortic aneurysm. Lymph nodes: Unremarkable. No enlarged lymph nodes. Urinary bladder: Unremarkable as visualized. Reproductive: 3.5 cm simple appearing right adnexal cyst. Uterus and left adnexal region appear unremarkable. Bones/joints: Unremarkable. No acute fracture. Soft tissues: Unremarkable. IMPRESSION: 1. Cholelithiasis and choledocholithiasis with mild biliary ductal dilation and gallbladder wall thickening suggesting acute cholecystitis 2. Nonspecific 3.5 cm left lobe liver mass. Correlation with liver protocol CT or MRI abdomen recommended clinically feasible. 3. Simple appearing 3.5 cm right adnexal cyst. Ultrasound follow-up in 6-12 months is recommended. (Reference: Sy) References: Dan et al. Management of Incidental Adnexal Findings on CT and MRI: A White Paper of the ACR Incidental Findings Committee, J Am Ema Radiol. 2019;17(2):248-254. Dictated and Authenticated by: Javi Durbin MD. Ordering:DOUGLAS Huynh MD Radiologic Study #2: Attestation: I personally reviewed and interpreted this imaging study as follows: Imaging: CT Scan Lab Data Lab results reviewed: Yes I reviewed the patient's lab results. Labs: Laboratory Tests Range/Units 01/29/24 01/29/24 18:52 19:52 WBC (4.4-10.8) 10^3/uL 12.76 H RBC (3.93-5.22) 10^6/uL 5.28 H Hgb (11.2-15.7) g/dL 13.1 Hct (36.0-46.0) % 41.3 MCV (80-95) fL 78 L MCH (27.0-33.0) pg 24.8 L MCHC (32.0-36.0) % 31.7 L RDW (11.7-14.6) % 13.2 Plt Count (130-400) 10^3/uL 256 MPV (8.0-11.0) fL 9.7 Immature Gran % % 0.5 Neutrophils % % 86.6 Lymphocytes % % 6.9 Monocytes % % 5.2 Eosinophils % % 0.3 Basophils % % 0.5 Nucleated RBC % (0.0-0.3) % 0.0 Absolute Neutrophils (1.2-6.7) 10^3/uL 11.05 H Absolute Lymphocytes (1.2-3.4) 10^3/uL 0.88 L Absolute Monocytes (0.1-0.8) 10^3/uL 0.66 Absolute Eosinophils (0.0-0.7) 10^3/uL 0.04 Absolute Basophils (0.0-0.2) 10^3/uL 0.06 D-Dimer (<500) ng/mlFEU 909 H VBG Lactate (0.6-1.4) mmol/L 1.3 Sodium (136-145) mmol/L 136 Potassium (3.5-5.1) mmol/L 3.8 Chloride (98-107) mmol/L 100 Carbon Dioxide (21.0-32.0) mmol/L 27.2 Anion Gap (3-11) mmol/L 8.8 BUN (7-18) mg/dL 7 Creatinine (0.55-1.02) mg/dL 0.8 Est GFR (CKD-EPI 2020) (mL/min/1.73m2) 89.71 Glucose (74-106) mg/dL 158 H Calcium (8.5-10.1) mg/dL 9.2 Total Bilirubin (0.2-1.0) mg/dL 2.6 H Conjugated Bilirubin (0.0-0.2) mg/dL 1.8 H AST (15-37) U/L 368 H ALT (14-59) U/L 364 H Alkaline Phosphatase (46-116) U/L 219 H Troponin I (< or =60) ng/L < 50 NT-Pro-B Natriuret Pep (<300) pg/mL 178 Total Protein (6.4-8.2) g/dL 7.8 Albumin (3.4-5.0) g/dL 3.7 Lipase (16-77) U/L 30 Procalcitonin ng/mL < 0.1 Urine Color (Yellow) Yellow Urine Clarity (Clear) Sl Cloudy Urine pH (5-8) 5.0 Ur Specific [place] (1.005-1.025) >= 1.030 H Urine Protein (Neg-Trace) mg/dL Negative Urine Ketones (Negative) mg/dL Trace H Urine Blood (Negative) Negative Urine Nitrite (Negative) Negative Urine Bilirubin (Negative) Small H Urine Urobilinogen (Up to 0.2) mg/dL 1.0 H Ur Leukocyte Esterase (Negative) Negative Urine Glucose (Negative) mg/dL Negative Quality:SDOH Health Related Social Needs: No Data to Display PFSH All Active Problems (Updated 01/29/24 @ 22:32 by INDIGO Wong) Choledocholithiasis with acute cholecystitis (Acute) Medical History (Updated 01/29/24 @ 22:32 by INDIGO Wong) Dysfunctional uterine bleeding Obesity HTN (hypertension) Uterine fibroid Social History Smoking/Tobacco Use Status: Never Smoking risk assessment performed?: Yes Alcohol Intake: current Drug use: Never Substance use type: does not use Do you feel safe at home: Yes Do you feel safe in your relationship?: Yes Female Reproductive History Menstrual Age of Menarche: 11 Duration of menses: >10 days (Now periods are about 2 weeks long) control method: condoms History History 1 Para 1 Hx # Term Pregnancies Multiple births Hx # Pregnancies Ectopic pregnancies AB induced Hx Number of Living Children 1 AB spontaneous Sign Out Sign Out Data: Sign Out Comment: Patient pending transfer for choledocho, with gallbladder wall thickening Elevated LFTs Needs transfer for ERCP Last updated by Lino Eric PA at 01/29/24 23:38
[2024-01-29 19:05] LABS: Lactate 1.3 mmol/L (0.6-1.4)
[2024-01-29 19:20] LABS: Abs Immature Grans 0.06 10^3/uL (0.0-0.06); Absolute Basophil Count 0.06 10^3/uL (0.0-0.2); Absolute Eosinophil Count 0.04 10^3/uL (0.0-0.7); Absolute Lymphocyte Count 0.88 10^3/uL (1.2-3.4); Absolute Monocyte Count 0.66 10^3/uL (0.1-0.8); Basophils % 0.5 %; Eosinophils % 0.3 %; HCT 41.3 % (36.0-46.0); HGB 13.1 g/dL (11.2-15.7); Immature Grans % 0.5 %; Lymphocytes % 6.9 %; MCH 24.8 pg (27.0-33.0); MCHC 31.7 % (32.0-36.0); MCV 78 fL (80-95); MPV 9.7 fL (8.0-11.0); Monocytes % 5.2 %; Neutrophils % 86.6 %; Platelet Count 256 10^3/uL (130-400); RBC 5.28 10^6/uL (3.93-5.22); RDW 13.2 % (11.7-14.6); RDW-SD 37.5 fL; WBC 12.76 10^3/uL (4.4-10.8)
[2024-01-29 19:31] LABS: Absolute Neutrophil Count 11.05 10^3/uL (1.2-6.7)
[2024-01-29 19:36] LABS: ALT 364 U/L (14-59); AST 368 U/L (15-37); Albumin 3.7 g/dL (3.4-5.0); Alkaline Phosphatase 219 U/L (46-116); Anion Gap 8.8 mmol/L (3-11); BUN 7 mg/dL (7-18); Bilirubin, Total 2.6 mg/dL (0.2-1.0); CO2 27.2 mmol/L (21.0-32.0); CREATININE 0.8 mg/dL (0.55-1.02); Calcium 9.2 mg/dL (8.5-10.1); Chloride 100 mmol/L (98-107); Estimated GFR 89.71 (mL/min/1.73m2); Glucose 158 mg/dL (74-106); Lipase 30 U/L (16-77); NT-proBNP 178 pg/mL (<300); Potassium 3.8 mmol/L (3.5-5.1); Sodium 136 mmol/L (136-145); Total Protein 7.8 g/dL (6.4-8.2)
[2024-01-29 19:38] LABS: Troponin I < 50 ng/L (< or =60)
--- NOTE | 2024-01-29 20:00 | DI.CT_ITS ---
Exam(s) CT ABDOMEN PELVIS W EXAM: CT ABDOMEN PELVIS W CLINICAL HISTORY: elevated LFTs RUQ tenderness. TECHNIQUE: Imaging Protocol: Axial computed tomography images with coronal and sagittal reformatted images were created and reviewed CONTRAST MATERIAL: Intravenous: Omnipaque 350 Contrast volume:100 ml Oral: / no COMPARISON: No exams were available for comparison FINDINGS: ABDOMEN and PELVIS: Lung Bases: No acute findings. Liver: Hepatic steatosis. Cyst noted anterior left lobe. No suspicious mass. Gallbladder and biliary tract: Gallbladder shows multiple stones as well as wall thickening. There a re stones in the gallbladder neck as well as common bile duct. Findings consistent with acute cholec ystitis. There are 4 adjacent stones in the common bile duct. There is mild dilatation the common b ile duct above this level the 9 millimeters. Pancreas: Normal density. No abnormal calcifications or inflammatory process. No evidence of mass. Spleen: Normal. Kidneys: Normal size, contour and axis. No radiodense stones. No obstructive uropathy. No suspicious masses seen. Adrenal glands: No masses seen. Vasculature: Abdominal aorta non-dilated. Soft tissues: Unremarkable. Bladder: No gross wall thickening. No calculi.No focal mass. Bowel: No obstruction. No bowel wall thickening. Appendix normal. Peritoneal cavity: No ascites. No focal collection. No mesenteric inflammatory response. Bones: Unremarkable for age. Reproductive organs: uterine fibroid again noted. 4 centimeter right ovarian cyst. Left ovary appe ars normal. Lymph nodes: No pathologically enlarged lymph nodes. IMPRESSION:: Findings consistent with acute cholecystitis. There are multiple stones in the gallbla dder is as well as adjacent stones in the common bile duct. RADIATION DOSE DELIVERED: 1,821.23mGy.cm Total DLP DATA REPOSITORY: All CT scans at this facility are submitted to the National Radiology Data Registry (NRDR) Dose Index Registry (DIR) with the [employer] (ACR). RADIATION OPTIMIZATION: All CT scans at this facility use at least one of these dose optimization te chniques: automated exposure control; mA and/or kV adjustment per patient size (includes targeted exa ms where dose is matched to clinical indication); or iterative reconstruction.
[2024-01-29 20:01] LABS: Procalcitonin < 0.1 ng/mL
[2024-01-29 20:11] LABS: D-Dimer 909 ng/mlFEU (<500)
[2024-01-29 20:22] LABS: Bilirubin Small (Negative); Blood Negative (Negative); Clarity Sl Cloudy (Clear); Glucose Negative (Negative); Ketones Trace mg/dL (Negative); Leukocyte Esterase Negative (Negative); Nitrite Negative (Negative); Specific Gravity >= 1.030 (1.005-1.025)
[2024-01-29] MEDS: Omnipaque 350 MG/ML 100 ML BTL IJ ×2 (20:26→21:05)
[2024-01-29] MEDS: Normal Saline - Diluent 50 ML VIAL IJ ×2 (20:26→21:05)
--- NOTE | 2024-01-29 20:26 | DI.CT_ITS ---
Exam(s) CT CHEST PE CTA EXAM: CT CHEST PE CTA CLINICAL HISTORY: elev d-dimer, pleuritic pain R thorax. TECHNIQUE: Imaging Protocol: Axial CT angiography was performed with multi-slice acquisition and mu lti-planar reconstructions as well as axial, coronal and sagittal MIP reconstructions. CONTRAST MATERIAL: Intravenous: Omnipaque 350 Contrast volume:100 ml COMPARISON: CT CT ABDOMEN PELVIS W from 01/29/2024 FINDINGS: Pulmonary Arteries: No evidence of filling defect to suggest pulmonary emboli. Tracheobronchial tree: No mucous plugging. Mediastinum and [place]: No dominant adenopathy or fluid collection. Pulmonary parenchyma: No consolidation or dominant measurable mass. Pleura: No effusion or pneumothorax. Heart: The heart is not dilated. No coronary artery calcifications are seen. Aorta: Thoracic aorta non-dilated. No dissection. Upper abdomen: Hepatic steatosis. Bones: Unremarkable for age. Tubes, Catheters, and Lines: None Soft tissues: Unremarkable. IMPRESSION: No evidence of pulmonary embolism or other acute abnormality in the chest. RADIATION DOSE DELIVERED: 648.96mGy.cm Total DLP DATA REPOSITORY: All CT scans at this facility are submitted to the National Radiology Data Registry (NRDR) Dose Index Registry (DIR) with the [employer] (ACR). RADIATION OPTIMIZATION: All CT scans at this facility use at least one of these dose optimization te chniques: automated exposure control; mA and/or kV adjustment per patient size (includes targeted exa ms where dose is matched to clinical indication); or iterative reconstruction.
[2024-01-29 21:17] LABS: Bilirubin, Direct 1.8 mg/dL (0.0-0.2)
--- NOTE | 2024-01-29 21:45 | DI.VRAD_ITS ---
PROCEDURE INFORMATION: Exam: CT Abdomen And Pelvis With Contrast Exam date and time: 01/29/2024 8:21 PM Age: 48 years old Clinical indication: Other: Elevated lfts ruq tenderness; Abdominal pain TECHNIQUE: Imaging protocol: Computed tomography of the abdomen and pelvis with contrast. Contrast material: OMNI 350; Contrast volume: 100 ml; Contrast route: INTRAVENOUS (IV); COMPARISON: US pelvis 02/16/2019 8:16 AM FINDINGS: Liver: 3.5 cm hypoattenuating circumscribed mass in the lateral segment of the left lobe liver with a nonspecific appearance. Liver is otherwise unremarkable. Gallbladder and bile ducts: Numerous calcified gallstones of varying sizes in the gallbladder fundus as well as with the neck of the gallbladder. Several small stones noted in the distal common bile duct mild dilation of the common duct measuring approximately 9 mm. Moderate diffuse gallbladder wall thickening. Pancreas: Normal. No ductal dilation. Spleen: Normal. No splenomegaly. Adrenal glands: Normal. No mass. Kidneys and ureters: Normal. No hydronephrosis. Stomach and bowel: Unremarkable. No obstruction. No mucosal thickening. Appendix: No evidence of appendicitis. Intraperitoneal space: Unremarkable. No free air. No significant fluid collection. Vasculature: Unremarkable. No abdominal aortic aneurysm. Lymph nodes: Unremarkable. No enlarged lymph nodes. Urinary bladder: Unremarkable as visualized. Reproductive: 3.5 cm simple appearing right adnexal cyst. Uterus and left adnexal region appear unremarkable. Bones/joints: Unremarkable. No acute fracture. Soft tissues: Unremarkable. IMPRESSION: 1. Cholelithiasis and choledocholithiasis with mild biliary ductal dilation and gallbladder wall thickening suggesting acute cholecystitis 2. Nonspecific 3.5 cm left lobe liver mass. Correlation with liver protocol CT or MRI abdomen recommended clinically feasible. 3. Simple appearing 3.5 cm right adnexal cyst. Ultrasound follow-up in 6-12 months is recommended. (Reference: Sy) References: Sy et al. Management of Incidental Adnexal Findings on CT and MRI: A White Paper of the ACR Incidental Findings Committee, J Am Ema Radiol. 2020 Oct;17(2):248-254. Dictated and Authenticated by: Javi Durbin MD. Ordering:DOUGLAS Huynh MD
--- NOTE | 2024-01-29 21:50 | DI.VRAD_ITS ---
PROCEDURE INFORMATION: Exam: CTA Chest With Contrast Exam date and time: 01/29/2024 9:10 PM Age: 48 years old Clinical indication: Other: Elev d-dimer; Other: Pleuritic pain R thorax; Additional info: Elev d-dimer, pleuritic pain R thorax TECHNIQUE: Imaging protocol: Computed tomographic angiography of the chest with contrast. Exam focused on the arteries. 3D rendering (Not supervised by radiologist): MIP and/or 3D reconstructed images were created by the technologist. Contrast material: OMNI 350; Contrast volume: 100 ml; Contrast route: INTRAVENOUS (IV); COMPARISON: CT ABDOMEN PELVIS W 01/29/2024 8:21 PM FINDINGS: Pulmonary arteries: Normal. No pulmonary emboli. Aorta: Unremarkable. No aortic aneurysm. No aortic dissection. Lungs: Unremarkable. No consolidation. No masses. Pleural spaces: Unremarkable. No pneumothorax. No pleural effusion. Heart: Unremarkable. No cardiomegaly. No pericardial effusion. Lymph nodes: Unremarkable. No enlarged lymph nodes. Bones/joints: Slight thoracic scoliosis. No vertebral body compression or acute fracture. Soft tissues: Unremarkable. IMPRESSION: No evidence of pulmonary embolus or other acute abnormality in the chest. Dictated and Authenticated by: Javi Durbin MD. Ordering:DOUGLAS Huynh MD
[2024-01-29 21:56] VITALS: BP 142/63; PULSE 71; RESP 19; O2SAT 98
[2024-01-29] MEDS: Normal Saline 1,000 ML 150 ML IV (22:07)
[2024-01-29] MEDS: PIPERACILLIN/TAZO 4.5 GM in Normal Saline 100 ML IVPB (22:07)
--- NOTE | 2024-01-30 00:04 | SCONE_ITS ---
Date of service: 01/30/24 Time of Service: 00:04 Assessment and Plan Assessment and plan (1) Choledocholithiasis with acute cholecystitis: Status: Acute Assessment and plan: 48 yo woman asked to admit by ED for Hyperbilirubin and imaging showing choledocholithiasis. GI at [facility] agreed to do ERCP in AM. Reportedly HD Stable. PLAN: IV Abx Analgesia IVF ERCP in AM Interval Lap Dawn before DC History of Present Illness Narrative: 48 yo woman asked to admit by ED for Hyperbilirubin and imaging showing choledocholithiasis. GI at [facility] agreed to do ERCP in AM. Reportedly HD Stable. PFSH All Active Problems (Updated 01/29/24 @ 22:32 by INDIGO Wong) Choledocholithiasis with acute cholecystitis (Acute) Medical History (Updated 01/29/24 @ 22:32 by INDIGO Wong) Dysfunctional uterine bleeding Obesity HTN (hypertension) Uterine fibroid Social History Smoking/Tobacco Use Status: Never Smoking risk assessment performed?: Yes Alcohol Intake: current Drug use: Never Substance use type: does not use Do you feel safe at home: Yes Do you feel safe in your relationship?: Yes Female Reproductive History Menstrual Age of Menarche: 11 Duration of menses: >10 days (Now periods are about 2 weeks long) control method: condoms History History 2 1 Para 1 Hx # Term Pregnancies Multiple births Hx # Pregnancies Ectopic pregnancies AB induced Hx Number of Living Children 1 AB spontaneous Exam Narrative Exam Narrative: Reportedly HD stable and not toxic Results Last Vital Signs Temp 97.9 F 01/29/24 16:30 Pulse 71 01/29/24 21:56 Resp 19 01/29/24 21:56 BP 142/63 H 01/29/24 21:56 Pulse Ox 98 01/29/24 21:56 Labs 01/29/24 18:52 01/29/24 18:52 Labs: Laboratory Results - last 24 hr 01/29/24 01/29/24 18:52 19:52 WBC 12.76 H RBC 5.28 H Hgb 13.1 Hct 41.3 MCV 78 L MCH 24.8 L MCHC 31.7 L RDW 13.2 Plt Count 256 MPV 9.7 Immature Gran % 0.5 Neutrophils % 86.6 Lymphocytes % 6.9 Monocytes % 5.2 Eosinophils % 0.3 Basophils % 0.5 Nucleated RBC % 0.0 Absolute Neutrophils 11.05 H Absolute Lymphocytes 0.88 L Absolute Monocytes 0.66 Absolute Eosinophils 0.04 Absolute Basophils 0.06 D-Dimer 909 H VBG Lactate 1.3 Sodium 136 Potassium 3.8 Chloride 100 Carbon Dioxide 27.2 Anion Gap 8.8 BUN 7 Creatinine 0.8 Est GFR (CKD-EPI 2020) 89.71 Glucose 158 H Calcium 9.2 Total Bilirubin 2.6 H Conjugated Bilirubin 1.8 H AST 368 H ALT 364 H Alkaline Phosphatase 219 H Troponin I < 50 NT-Pro-B Natriuret Pep 178 Total Protein 7.8 Albumin 3.7 Lipase 30 Procalcitonin < 0.1 Urine Color Yellow Urine Clarity Sl Cloudy Urine pH 5.0 Ur Specific [place] >= 1.030 H Urine Protein Negative Urine Ketones Trace H Urine Blood Negative Urine Nitrite Negative Urine Bilirubin Small H Urine Urobilinogen 1.0 H Ur Leukocyte Esterase Negative Urine Glucose Negative
--- NOTE | 2024-01-30 00:06 | W.EDPROG ---
Date of service: 01/30/24 Time of Service: 00:06 Medical Decision Making Patient signed out to me pending making arrangements for transfer versus overrun back ERCP. [facility] declined both. [facility] is capable of providing over and back ERCP. We need to call at 8:00 in the morning to find out the timing, but they are sure they will be able to accommodate and provide the service. Discussed with Dr. Masters, who will admit to surgical service here. We have spoke with [facility] regarding availability of transport which will not be an issue as patient can go at the [facility] level. Nursing payroll supervisor has been made aware of plan and will need to make care management aware first thing in the morning to contact [facility] for timing and [facility] for transport. Patient has received a dose of Zosyn, is NPO getting fluids and is written for prn morphine here pending admission. Quality:SDOH Health Related Social Needs: No Data to Display Sign Out Sign Out Data: Sign Out Comment: Patient pending transfer for choledocho, with gallbladder wall thickening Elevated LFTs Needs transfer for ERCP Last updated by Lino Eric PA at 01/29/24 23:38 Discharge Plan Disposition Patient Disposition: Admit to [facility] Condition: Stable Discharge Details Chief Complaint: Abd Prob Clinical Impression: Choledocholithiasis with acute cholecystitis Primary Care Provider: Sheela Perkins ED Provider: Daryl Angelo Kenneth Meds and New Rx's Prescriptions: No Action metoprolol succinate 100 mg tablet extended release 24 hr 100 mg PO DAILY Patient Comments: TAKE 1 TABLET BY MOUTH EVERY DAY lisinopril 10 mg tablet 10 mg PO DAILY Patient Comments: TAKE 1 TABLET BY MOUTH EVERY DAY
[2024-01-30 00:40] VITALS: BP 140/76; PULSE 73; RESP 20; TEMP 36.9; O2SAT 98
[2024-01-30] MEDS: ACETAMINOPHEN 1,000 MG/100 ML BTL 400 MG IVPB ×4 (02:02→21:33)
[2024-01-30] MEDS: Metoprolol CR 50 MG TABCR PO ×2 (02:02→21:34)
[2024-01-30] MEDS: Lactated Ringers 1,000 ML 125 ML IV ×3 (02:05→21:34)
[2024-01-30] MEDS: PIPERACILLIN/TAZO 3.375 GM in Normal Saline 50 ML IVPB ×4 (04:24→21:34)
--- NOTE | 2024-01-30 07:16 | INITIAL_ITS ---
Date of service: 01/30/24 Time of Service: 07:16 Care Management Initial Assmt Initial Assessment Reason for Hospitalization: Choledocholithiasis Functional Status/Living Situation Patient Presentation: Sosa was scheduled to transport to [facility] this morning via [facility] for ERCP, per MD, [facility] called later in the day to cancel, and both [facility] and [facility] have declined down and back appointment prior to 02/10/24. CM following. Town of Residence: [place] Resides with: Spouse (Dale) Significant Other/Family: Local Employment Status: Employed ([employer] ) Instrumental Activities of Daily Living (ADLs): Independent Medications Medication Management: No Issues/Barriers identified Physical Functioning/Mobility Assistive Device: CPAP Advance Directives Advance Directives: Do you have an Advance Directive: N 03/19/14 09:41 AD On File at [facility]: N 03/19/14 09:41 Date Asked 01/29/24 01/29/24 16:38 AD Date Reviewed COLST On File at [facility] COLST Date Scanned Code Status Resuscitation Status Full Code Insurance Coverage/Financial Issues Insurance: BC/BS ACO Member: No Care Team Visit Care Team Role Provider Type Sheela Perkins Primary Care Provider ADV PRACTICE REGISTERED NURSE Daryl Angelo MD Emergency Provider [facility] STAFF PHYSICIAN Dejuan Wagner MD Admit Provider [facility] STAFF PHYSICIAN Attending Provider Discharge Potential Discharge Needs: Surgical F/U Appt Anticipated Barriers to Discharge: Treatment delay (Down and back appointment for ERCP: [facility] declined-anticipate appointment at [facility] today. ) Patient/Family Education Needs: Review discharge instructions, discuss Ask Me Three Plan: Sosa remains NPO for anticipated down and back ERCP at [facility] today. CM following. Update: [facility] cancelled appointment, patient now must wait until after holiday weekend for needed ERCP. PFSH All Active Problems (Updated 01/29/24 @ 22:32 by INDIGO Wong) Choledocholithiasis with acute cholecystitis (Acute) Medical History (Updated 01/29/24 @ 22:32 by INDIGO Wong) Dysfunctional uterine bleeding Obesity HTN (hypertension) Uterine fibroid Social History Smoking/Tobacco Use Status: Never Smoking risk assessment performed?: Yes Alcohol Intake: current Drug use: Never Substance use type: does not use Housing: house Do you feel safe at home: Yes Do you feel safe in your relationship?: Yes Female Reproductive History Menstrual Age of Menarche: 11 Duration of menses: >10 days (Now periods are about 2 weeks long) control method: condoms History History 1 Para 1 Hx # Term Pregnancies Multiple births Hx # Pregnancies Ectopic pregnancies AB induced Hx Number of Living Children 1 AB spontaneous SDOH(Care Management) Screening Will the Patient Participate in the Screening?: Yes Do you worry about having a steady place to live?: no In the past 12 months, have you had to go without electric, gas, oil or water in your home?: no Have you or anyone in your house had to go without enough food to eat?: no Has lack of transportation kept you from medical appointments or from doing things needed for daily living?: no Has anyone in your support network made you feel unsafe for any reason?: no Social Determinants of Health Comments(SDOH Details): denies any concerns
[2024-01-30 07:22] LABS: Abs Immature Grans 0.05 10^3/uL (0.0-0.06); Absolute Basophil Count 0.06 10^3/uL (0.0-0.2); Absolute Eosinophil Count 0.11 10^3/uL (0.0-0.7); Absolute Lymphocyte Count 0.98 10^3/uL (1.2-3.4); Absolute Monocyte Count 0.71 10^3/uL (0.1-0.8); Absolute Neutrophil Count 5.44 10^3/uL (1.2-6.7); Basophils % 0.8 %; Eosinophils % 1.5 %; HCT 33.9 % (36.0-46.0); HGB 10.6 g/dL (11.2-15.7); Immature Grans % 0.7 %; Lymphocytes % 13.3 %; MCH 24.8 pg (27.0-33.0); MCHC 31.3 % (32.0-36.0); MCV 79 fL (80-95); MPV 9.4 fL (8.0-11.0); Monocytes % 9.7 %; Platelet Count 179 10^3/uL (130-400); RBC 4.28 10^6/uL (3.93-5.22); RDW 13.2 % (11.7-14.6); RDW-SD 37.7 fL; WBC 7.35 10^3/uL (4.4-10.8)
[2024-01-30 07:24] VITALS: BP 107/50; PULSE 68; RESP 18; TEMP 36.6; O2SAT 98
--- NOTE | 2024-01-30 07:36 | W.PM.PROGNOT ---
Date of Service Date of service: 01/30/24 Time of Service: 07:36 Assessment and Plan Assessment and plan (1) Choledocholithiasis with acute cholecystitis: Status: Acute Assessment and plan: Awaiting trip to [facility] for ERCP later today Will continue NPO status IV antibiotics Pain is well controlled. IV Fluids Encouraged her to sit in the chair and ambulation as tolerated. Subjective Subjective Interval history since last seen: Arrived with patient resting comfortably. She states that she has not had any pain since last night. She denies any nausea or vomiting. Exam Const General: cooperative, healthy appearing and comfortable Orientation: alert and oriented x3 Resp Effort & Inspection: normal respiratory effort, no audible wheezes and no cough GI Inspection: normal to inspection and obesity Palpation: soft, no guarding and nontender Objective Last Vital Signs Temp 36.6 C 01/30/24 07:24 Pulse 68 01/30/24 07:24 Resp 18 01/30/24 07:24 BP 107/50 L 01/30/24 07:24 Pulse Ox 98 01/30/24 07:24 Laboratory Results - last 24 hr 01/29/24 01/29/24 01/30/24 18:52 19:52 06:18 WBC 12.76 H 7.35 RBC 5.28 H 4.28 Hgb 13.1 10.6 L D Hct 41.3 33.9 L MCV 78 L 79 L MCH 24.8 L 24.8 L MCHC 31.7 L 31.3 L RDW 13.2 13.2 Plt Count 256 179 MPV 9.7 9.4 Immature Gran % 0.5 0.7 Neutrophils % 86.6 74.0 Lymphocytes % 6.9 13.3 Monocytes % 5.2 9.7 Eosinophils % 0.3 1.5 Basophils % 0.5 0.8 Nucleated RBC % 0.0 0.0 Absolute Neutrophils 11.05 H 5.44 Absolute Lymphocytes 0.88 L 0.98 L Absolute Monocytes 0.66 0.71 Absolute Eosinophils 0.04 0.11 Absolute Basophils 0.06 0.06 D-Dimer 909 H VBG Lactate 1.3 Sodium 136 Potassium 3.8 Chloride 100 Carbon Dioxide 27.2 Anion Gap 8.8 BUN 7 Creatinine 0.8 Est GFR (CKD-EPI 2020) 89.71 Glucose 158 H Calcium 9.2 Total Bilirubin 2.6 H Conjugated Bilirubin 1.8 H AST 368 H ALT 364 H Alkaline Phosphatase 219 H Troponin I < 50 NT-Pro-B Natriuret Pep 178 Total Protein 7.8 Albumin 3.7 Lipase 30 Procalcitonin < 0.1 Urine Color Yellow Urine Clarity Sl Cloudy Urine pH 5.0 Ur Specific [place] >= 1.030 H Urine Protein Negative Urine Ketones Trace H Urine Blood Negative Urine Nitrite Negative Urine Bilirubin Small H Urine Urobilinogen 1.0 H Ur Leukocyte Esterase Negative Urine Glucose Negative Time Spent with Patient Time Spent with Patient: <25 minutes Time was spent: preparing to see the patient(eg.review tests), obtaining and/or reviewing separately otained hiistory and counseling the patient
[2024-01-30 07:57] LABS: ALT 357 U/L (14-59); AST 324 U/L (15-37); Albumin 2.7 g/dL (3.4-5.0); Alkaline Phosphatase 177 U/L (46-116); BUN 5 mg/dL (7-18); Bilirubin, Total 3.5 mg/dL (0.2-1.0); CREATININE 0.8 mg/dL (0.55-1.02); Calcium 8.6 mg/dL (8.5-10.1); Chloride 108 mmol/L (98-107); Estimated GFR 89.71 (mL/min/1.73m2); Glucose 137 mg/dL (74-106); Potassium 3.5 mmol/L (3.5-5.1); Sodium 143 mmol/L (136-145)
--- NOTE | 2024-01-30 11:49 | CHAPLAIN ---
Sosa is waiting to be transported to [facility] for an ERCP, and then will return here. She said she asked family and friends not to visit today until she knows when she's going to [facility]. Sosa was pleasant and easily engaged in a conversation.
[2024-01-30 15:20] VITALS: BP 103/58; PULSE 62; RESP 17; TEMP 36.5; O2SAT 97
--- NOTE | 2024-01-30 17:08 | W.PM.PROGNOT ---
Date of Service Date of service: 01/30/24 Time of Service: 17:08 Assessment and Plan Assessment and plan (1) Choledocholithiasis with acute cholecystitis: Status: Acute Assessment and plan: Unfortunately, at the current time, I am not able to source an endoscopist who is willing to clear the duct before next week. For now, I will continue antibiotics and retest the liver fucntion. Furthermore, I don't think the stone burden is amenable to operative flushing. if the LFT normalize I will consider cholecystectomy with confirmatory IOC, otherwise we will have to wait until Friday for ERCP. Subjective Subjective Interval history since last seen: Sosa is feeling better compared to last night. She was supposed to go to [facility] today for ERC, however, [facility] cancelled her. I have called [facility] as well as [facility] once again. Those facilities will not accomodate her until Friday. Exam GI Other: Abdomen is soft and non-tender. Objective Last Vital Signs Temp 97.7 F 01/30/24 15:20 Pulse 62 01/30/24 15:20 Resp 17 01/30/24 15:20 BP 103/58 L 01/30/24 15:20 Pulse Ox 97 01/30/24 15:20 Laboratory Results - last 24 hr 01/29/24 01/29/24 01/30/24 18:52 19:52 06:18 WBC 12.76 H 7.35 RBC 5.28 H 4.28 Hgb 13.1 10.6 L D Hct 41.3 33.9 L MCV 78 L 79 L MCH 24.8 L 24.8 L MCHC 31.7 L 31.3 L RDW 13.2 13.2 Plt Count 256 179 MPV 9.7 9.4 Immature Gran % 0.5 0.7 Neutrophils % 86.6 74.0 Lymphocytes % 6.9 13.3 Monocytes % 5.2 9.7 Eosinophils % 0.3 1.5 Basophils % 0.5 0.8 Nucleated RBC % 0.0 0.0 Absolute Neutrophils 11.05 H 5.44 Absolute Lymphocytes 0.88 L 0.98 L Absolute Monocytes 0.66 0.71 Absolute Eosinophils 0.04 0.11 Absolute Basophils 0.06 0.06 D-Dimer 909 H VBG Lactate 1.3 Sodium 136 143 Potassium 3.8 3.5 Chloride 100 108 H Carbon Dioxide 27.2 27.0 Anion Gap 8.8 8.0 BUN 7 5 L Creatinine 0.8 0.8 Est GFR (CKD-EPI 2020) 89.71 89.71 Glucose 158 H 137 H Calcium 9.2 8.6 Total Bilirubin 2.6 H 3.5 H Conjugated Bilirubin 1.8 H AST 368 H 324 H ALT 364 H 357 H Alkaline Phosphatase 219 H 177 H Troponin I < 50 NT-Pro-B Natriuret Pep 178 Total Protein 7.8 6.0 L Albumin 3.7 2.7 L Lipase 30 Procalcitonin < 0.1 Urine Color Yellow Urine Clarity Sl Cloudy Urine pH 5.0 Ur Specific [place] >= 1.030 H Urine Protein Negative Urine Ketones Trace H Urine Blood Negative Urine Nitrite Negative Urine Bilirubin Small H Urine Urobilinogen 1.0 H Ur Leukocyte Esterase Negative Urine Glucose Negative Time Spent with Patient Time Spent with Patient: >50 minutes Time was spent: preparing to see the patient(eg.review tests), referring, communicating with other health skin care therapist, counseling the patient and care coordination
[2024-01-30 19:20] VITALS: BP 121/74; PULSE 60; RESP 18; TEMP 36.2; O2SAT 96
[2024-01-31] MEDS: ACETAMINOPHEN 1,000 MG/100 ML BTL 400 MG IVPB ×3 (02:45→20:28)
[2024-01-31] MEDS: PIPERACILLIN/TAZO 3.375 GM in Normal Saline 50 ML IVPB ×4 (03:03→20:55)
[2024-01-31 05:13] VITALS: BP 153/86; PULSE 55; RESP 18; TEMP 36; O2SAT 95
[2024-01-31 06:49] LABS: HCT 33.6 % (36.0-46.0); HGB 10.5 g/dL (11.2-15.7); MCH 24.7 pg (27.0-33.0); MCHC 31.3 % (32.0-36.0); MCV 79 fL (80-95); MPV 9.7 fL (8.0-11.0); Platelet Count 166 10^3/uL (130-400); RBC 4.25 10^6/uL (3.93-5.22); RDW 13.3 % (11.7-14.6); WBC 5.27 10^3/uL (4.4-10.8)
[2024-01-31 07:10] LABS: ALT 417 U/L (14-59); AST 282 U/L (15-37); Albumin 2.7 g/dL (3.4-5.0); Alkaline Phosphatase 166 U/L (46-116); Anion Gap 9.6 mmol/L (3-11); BUN 5 mg/dL (7-18); Bilirubin, Direct 1.3 mg/dL (0.0-0.2); Bilirubin, Total 1.8 mg/dL (0.2-1.0); CO2 25.4 mmol/L (21.0-32.0); CREATININE 0.8 mg/dL (0.55-1.02); Calcium 8.3 mg/dL (8.5-10.1); Chloride 107 mmol/L (98-107); Estimated GFR 89.71 (mL/min/1.73m2); Glucose 97 mg/dL (74-106); Potassium 3.4 mmol/L (3.5-5.1); Sodium 142 mmol/L (136-145); Total Protein 5.8 g/dL (6.4-8.2)
--- NOTE | 2024-01-31 09:49 | W.PM.PROGNOT ---
Date of Service Date of service: 01/31/24 Time of Service: 09:50 Assessment and Plan Assessment and plan (1) Choledocholithiasis with acute cholecystitis: Status: Acute Assessment and plan: With bilirubin downtrending, I am optimistic that perhaps she is passed some of the common duct stones. Her white blood cell count is normal, and she has not had any fevers or any other systemic signs of infection. We went over a couple different options today, but for now I think the most reasonable plan is to repeat LFTs again tomorrow. Assuming everything looks good, we could give stronger consideration to removal of the gallbladder, with possible intraoperative cholangiography. I will advance her diet this afternoon, and see how she tolerates fat-free regular food, then keep her n.p.o. after midnight and reassess the labs in the morning time Subjective Subjective Interval history since last seen: Sosa was able to tolerate liquids last night without any nausea or pain. She says she feels good today. She actually does not really have any specific complaints this morning. Exam GI Other: Abdomen is soft and nondistended. She is not tender. Objective Last Vital Signs Temp 96.8 F L 01/31/24 05:13 Pulse 55 L 01/31/24 05:13 Resp 18 01/31/24 05:13 BP 153/86 H 01/31/24 05:13 Pulse Ox 95 01/31/24 05:13 Laboratory Results - last 24 hr 01/31/24 06:11 WBC 5.27 RBC 4.25 Hgb 10.5 L Hct 33.6 L MCV 79 L MCH 24.7 L MCHC 31.3 L RDW 13.3 Plt Count 166 MPV 9.7 Sodium 142 Potassium 3.4 L Chloride 107 Carbon Dioxide 25.4 Anion Gap 9.6 BUN 5 L Creatinine 0.8 Est GFR (CKD-EPI 2020) 89.71 Glucose 97 Calcium 8.3 L Total Bilirubin 1.8 H Conjugated Bilirubin 1.3 H AST 282 H ALT 417 H Alkaline Phosphatase 166 H Total Protein 5.8 L Albumin 2.7 L Time Spent with Patient Time Spent with Patient: 25-34 minutes Time was spent: preparing to see the patient(eg.review tests), indepentently interpreting results and counseling the patient
[2024-01-31 15:07] VITALS: BP 120/64; PULSE 54; RESP 16; TEMP 36; O2SAT 97
[2024-01-31] MEDS: Normal Saline Flush 10 ML SYR IVP ×2 (16:07→20:28)
[2024-01-31] MEDS: Metoprolol CR 50 MG TABCR PO (20:27)
[2024-01-31 20:40] VITALS: BP 150/85; PULSE 60; RESP 18; TEMP 36.5; O2SAT 97
[2024-02-01] VITALS (20 sets, daily range): BP systolic 113–152; BP diastolic 56–77; PULSE 37–69; RESP 14–22; TEMP 36.1–36.8; O2SAT 88–100; BMI 50.0
[2024-02-01] MEDS: Normal Saline Flush 10 ML SYR IVP ×4 (02:11→18:20)
[2024-02-01] MEDS: ACETAMINOPHEN 1,000 MG/100 ML BTL 400 MG IVPB ×3 (02:11→22:34)
[2024-02-01] MEDS: PIPERACILLIN/TAZO 3.375 GM in Normal Saline 50 ML IVPB ×2 (03:43→21:56)
[2024-02-01 06:24] LABS: HCT 33.9 % (36.0-46.0); HGB 10.4 g/dL (11.2-15.7); MCH 24.5 pg (27.0-33.0); MCHC 30.7 % (32.0-36.0); MCV 80 fL (80-95); MPV 9.4 fL (8.0-11.0); Platelet Count 171 10^3/uL (130-400); RBC 4.24 10^6/uL (3.93-5.22); RDW 13.4 % (11.7-14.6); RDW-SD 38.6 fL; WBC 6.07 10^3/uL (4.4-10.8)
[2024-02-01 06:44] LABS: ALT 296 U/L (14-59); AST 112 U/L (15-37); Albumin 2.5 g/dL (3.4-5.0); Alkaline Phosphatase 149 U/L (46-116); Bilirubin, Direct 0.6 mg/dL (0.0-0.2); Total Protein 5.7 g/dL (6.4-8.2)
--- NOTE | 2024-02-01 08:08 | ANES.PREOP_ITS ---
General Info Date of Service Date Performed: 02/01/24 Height: 5 ft 7.5 in Weight: 147.145 kg Body Mass Index (BMI): 50.0 Meds Allergies and Home Medications Allergies Allergy/AdvReac Type Severity Reaction Status Date / Time Sulfa (Sulfonamide AdvReac Intermediate GI problems Verified 01/30/24 00:29 Antibiotics) Home Medication Medication Instructions Recorded lisinopril 10 mg tablet 10 mg PO DAILY 01/29/24 metoprolol succinate 100 mg 50 mg PO QPM 01/29/24 tablet,extended release 24 hr Current Visit Medications: Current Medications Generic Name Dose Route Start Last Admin Trade Name Freq PRN Reason Stop Dose Admin Piperacillin Sod/Tazobactam 50 mls @ 100 mls/hr 01/30/24 04:00 02/01/24 03:43 Sod 3.375 gm/ Sodium Chloride IVPB 100 mls/hr Q6H LILY Administration Acetaminophen 1,000 mg in 100 mls @ 400 mls/hr 01/30/24 08:00 02/01/24 05:52 Ofirmev IVPB Infused Q6H LILY Infusion IV Miscellaneous Supplies 1 each 01/30/24 00:15 Iv Access IV DIRECTED LILY Metoprolol Succinate 50 mg 01/30/24 02:00 01/31/24 20:27 Metoprolol Cr 50 Mg Tabcr PO 50 mg HS LILY Administration Morphine Sulfate 4 mg 01/29/24 23:44 Morphine 4 Mg/Ml Syr IVP Q2H PRN PRN Ondansetron HCl 4 mg 01/30/24 00:01 Ondansetron 4 Mg/2 Ml Vial IVP Q4H PRN PRN Sodium Chloride 0 ml 01/30/24 10:47 02/01/24 03:44 Normal Saline Flush 10 Ml Syr IVP 10 ml PRN PRN Administration PFSH Active Problems Active Problems: Problem Status Onset Code Choledocholithiasis with acute cholecystitis K80.42 Medical History Medical History (Updated 01/29/24 @ 22:32 by INDIGO Wong) Dysfunctional uterine bleeding Obesity HTN (hypertension) Uterine fibroid Tobacco Smoking/Tobacco Use Status: Never Alcohol Alcohol Intake: current Substance Use Substance use: Never Substance use type: does not use Prental History History 2 1 Para 1 Hx # Term Pregnancies Multiple births Hx # Pregnancies Ectopic pregnancies AB induced Hx Number of Living Children 1 AB spontaneous Vital Signs and Lab Results Vital Signs Most Recent Vital Signs in EMR: Most Recent Vital Signs Temp Pulse Resp BP Pulse Ox 36.4 C L 52 L 18 129/73 97 02/01/24 07:15 02/01/24 07:15 02/01/24 07:15 02/01/24 07:15 02/01/24 07:15 Lab Results 02/01/24 06:05 01/31/24 06:11 Blood Type / Crossmatch: 2 No Data to Display Complete Blood Count: 2 White Blood Count 6.07 10^3/uL (4.4-10.8) 02/01/24 06:05 Red Blood Count 4.24 10^6/uL (3.93-5.22) 02/01/24 06:05 Hemoglobin 10.4 g/dL (11.2-15.7) L 02/01/24 06:05 Hematocrit 33.9 % (36.0-46.0) L 02/01/24 06:05 Platelet Count 171 10^3/uL (130-400) 02/01/24 06:05 Venous Blood Lactate 1.3 mmol/L (0.6-1.4) 01/29/24 18:52 Complete Metabolic Panel: 2 Sodium 142 mmol/L (136-145) 01/31/24 06:11 Potassium 3.4 mmol/L (3.5-5.1) L 01/31/24 06:11 Chloride 107 mmol/L (98-107) 01/31/24 06:11 Carbon Dioxide 25.4 mmol/L (21.0-32.0) 01/31/24 06:11 BUN 5 mg/dL (7-18) L 01/31/24 06:11 Creatinine 0.8 mg/dL (0.55-1.02) 01/31/24 06:11 Est GFR (CKD-EPI 2020) 89.71 (mL/min/1.73m2) 01/31/24 06:11 Calcium 8.3 mg/dL (8.5-10.1) L 01/31/24 06:11 Albumin 2.5 g/dL (3.4-5.0) L 02/01/24 06:05 Glucose 97 mg/dL (74-106) 01/31/24 06:11 Liver Function Panel: 2 Alanine Aminotransferase (ALT/SGPT) 296 U/L (14-59) H 02/01/24 06:05 Aspartate Amino Transf (AST/SGOT) 112 U/L (15-37) H 02/01/24 06 :05 Coagulation Panel: 2 D-Dimer 909 ng/mlFEU (<500) H 01/29/24 18:52 Cardiac Panel: 2 Troponin I < 50 ng/L (< or =60) 01/29/24 NT-Pro-B Natriuret Pep 178 pg/mL (<300) 01/29/24 Arterial Blood Gas: 2 No Data to Display Venous Blood Gas: 2 No Data to Display Pancreas Panel: 2 Lipase 30 U/L (16-77) 01/29/24 18:52 Thyroid Panel: 2 No Data to Display Infectious Disease: 2 No Data to Display Blood Cultures: 2 No Data to Display Toxicology Panel: 2 No Data to Display Panel: 2 No Data to Display Imaging and Studies Imaging and Studies Study information below may be from another EMR and interpreted by another provider. Please see original notes in EMR for more complete details. EKG Summary: 01/29: sinus Anesthesia Assessment and Plan Anesthesia History Personal History: No History of Anesthesia Complications Family History: No Family History of Anesthesia Complications Exercise Tolerance Exercise Tolerance: Metabolic Equivalents>4 Cardiac & Pulmonary Exam Cardiac Exam: Normal S1/S2 Heart Sounds Pulmonary Exam: Clear Bilateral Breath Sounds Implantable Cardiac Device Does patient have a Pacemaker or an ICD?: No Airway Exam Known Difficult Airway: No Mallampati Class: 2 Mouth Opening: Normal (> 3cm) Thyromental Distance: Greater than 3 cm Neck Range of Motion: Full ROM Neck Circumference: Normal Teeth Condition: Normal Dentition ASA Classification ASA Score: ASA 3 Emergency Case?: No NPO Status NPO Status: NPO Clears >2 hours, Solids >8 hours Status Status: Not Relevant due to Medical History and Negative HCG Anesthesia Plan Resuscitation Status: Full Code Anesthesia Technique: General Anesthesia Airway Planned: Endotracheal Tube Monitors Used: Standard Monitors Preoperative Comments:: 48 yo female for lap praveena. admitted 01/29/24 with choledocholithiasis. Sig PMHx: HTN, MALACHI (cpap), neuropathy (feet), DM (A1c 6.6 2021)
--- NOTE | 2024-02-01 08:26 | W.PM.PROGNOT ---
Date of Service Date of service: 02/01/24 Time of Service: 08: Assessment and Plan Assessment and plan (1) Choledocholithiasis with acute cholecystitis: Status: Acute Assessment and plan: Based on the liver function test trend, I suspect that her choledocholithiasis has resolved. We talked about moving ahead with cholecystectomy today, and she is agreeable. I think that is probably the most efficient and safe plan. I will keep her overnight again, and repeat LFTs tomorrow. Assuming they look okay, then I think she will be okay to discharge. If the LFTs raise any other concern, then we will wait till Friday when one of the tertiary care centers can accommodate us. Subjective Subjective Interval history since last seen: Sosa continues to feel well, and has tolerated a diet last night without any symptoms. Total bilirubin has normalized, and other LFTs continue to improve. Exam GI Other: Her abdomen is soft and she is not tender. Objective Last Vital Signs Temp 97.5 F L 02/01/24 07:15 Pulse 52 L 02/01/24 07:15 Resp 18 02/01/24 07:15 BP 129/73 02/01/24 07:15 Pulse Ox 97 02/01/24 07:15 Laboratory Results - last 24 hr 02/01/24 06:05 WBC 6.07 RBC 4.24 Hgb 10.4 L Hct 33.9 L MCV 80 MCH 24.5 L MCHC 30.7 L RDW 13.4 Plt Count 171 MPV 9.4 Total Bilirubin 1.0 Conjugated Bilirubin 0.6 H AST 112 H ALT 296 H Alkaline Phosphatase 149 H Total Protein 5.7 L Albumin 2.5 L Time Spent with Patient Time Spent with Patient: 25-34 minutes Time was spent: preparing to see the patient(eg.review tests), indepentently interpreting results, counseling the patient and care coordination
[2024-02-01] MEDS: Indocyanine green 25 MG VIAL (09:26)
[2024-02-01] MEDS: ceFAZolin 3,000 MG in Normal Saline 100 ML 200 MG IVPB (09:30)
[2024-02-01] MEDS: Lactated Ringers 1,000 ML 30 ML IV (09:33)
[2024-02-01] MEDS: Bupivacaine 0.25% Pres-Free 30 ML VIAL (09:45)
--- NOTE | 2024-02-01 12:58 | GB_PTH ---
PATIENT: Sosa Francis LOC: U#:[id number] AGE/SX: 48/F ROOM: [facility] RE01/30/[address]: Dejuan Wagner : 1975 BED: A DIS: 02/07/2024 SPEC #: [id number] RECD: 02/03/24 13:02 STATUS: NNAMDI LINARES #: [id number] MARSHA: 02/01/24 12:[address]: Dejuan Wagner DEPT: Surgical Specimen RECD BY: Madison Lujan ENTERED: 02/03/24 13:03 SP TYPE: GB OTHR DR: Sheela Perkins Tissues: 1 - GALLBLADDER Procedures: GROSS AND MICRO LEVEL 3 Comments: [id number]
--- NOTE | 2024-02-01 13:41 | W.PM.OP ---
Date of service: 02/01/24 Time of Service: 13:42 Operative Note Operative Note DATE OF PROCEDURE: 02/01/24 PRE-OP DIAGNOSIS: Choledocholithiasis POST-OP DIAGNOSIS: other (Cholecystitis and choledocholithiasis) PROCEDURE: Laparoscopic cholecystectomy SURGEON: Alexander Bronson [facility] ADVOCATE: Clayton Lang ANESTHESIA TYPE: Local By Surgeon and General LMA/ETT Refer to Anesthesia Record ESTIMATED BLOOD LOSS: 150 PATHOLOGY: other (Gallbladder) COMPLICATIONS: Other (Dense adhesions with posterior wall bleeding) Patient was transported to: PACU Patient's condition: stable Indications: Sosa is 48 years old, she came to the emergency department with abdominal pain. LFTs were concerning for choledocholithiasis. She underwent a CT scan that demonstrated gallbladder wall thickening with calcification, as well as several stones within the common bile duct. [facility] was contacted, and they agreed for ERCP the next day to clear the common bile duct. Unfortunately, the procedure was canceled by [facility], with no intent to proceed until the next week. Over the subsequent days, her LFTs began improving, and her symptoms basically resolved. With what appeared to be spontaneous clearing of her common bile duct, we discussed the role of cholecystectomy to reduce the likelihood of future episodes of choledocholithiasis. She was able to provide informed consent, we moved to the operating room for laparoscopic cholecystectomy Findings: Dense inflammatory adhesions around the gallbladder, with a large kanwal- infundibular fat pad Procedure Description: After satisfactory induction of general anesthesia, I prepped and draped the abdomen in usual fashion. Next, I began with a periumbilical incision. I dissected down to the fascia and elevated it with Mike clamps. I incised it sharply. Next, I passed a 12 mm operating port in the umbilical site. I secured it to the fascia with 0 Vicryl stitches. I then insufflated the peritoneal cavity. Next I inserted a 5 mm 30 degree scope scope and examined the underlying viscera. There was no evidence of injury created upon entry. I then placed the patient in some reverse Trendelenburg and left side down positioning. Then, with the assistance of the laparoscope, I used local anesthetic to anesthetize the midepigastric and 2 right upper quadrant port sites. Under the vision of the laparoscope, I passed 3 more 5 mm ports. There were acute and chronic adhesions of the gallbladder dome and body onto the surrounding omentum. These were carefully lysed using combination of blunt dissection as well as electrocautery. Gallbladder itself was quite difficult to grasp as it was edematous with a thickened wall. I decompressed the gallbladder with a needle draining light-colored bile. A laparoscopic tenaculum was then used to retract the dome of the gallbladder cephalad. With the assistance of indocyanine green visualization, I began dissection of the gallbladder body towards the infundibulum. The gallbladder infundibulum and cystic neck were encased in quite a bit of visceral fat. In an effort to avoid any injury to the common bile duct, we stayed close to the lateral aspect of the gallbladder wall. Several dense bandlike adhesions of the cystic neck were then divided using combination of clip and sharp division as well as electrocautery. As I brought this dissection down anterior towards the triangle of Calot, I encountered a large dilated common bile duct. Again, great care was taken to continue the dissection lateral and cephalad to this to minimize any injury to hepatic or common bile ducts. Having opened up the acute inflammation adjacent to the common bile duct, I could clearly see the cystic neck coming down into the fat pad towards its insertion on the common bile duct. Because of the significant amount of inflammation here, is quite worried about dissecting into the cystic duct proper. Because the remaining tissue was too large to separate with surgical clips, an Endo GO stapler was used to divide the cystic duct and the surrounding inflammatory rind. This required exchange of the midepigastric port from a 5 mm to a 12 mm port. with this complete, I could gently retract the gallbladder portion of the cystic duct laterally, and continue the dissection in an effort to control the cystic artery. It was quite difficult to dissect here because of all of the visceral fat and inflammation. There was a smaller artery in this area which was clipped and divided in the usual fashion. Next, in order to minimize chances injuring the hepatic plate, I thought a dome down approach to dissection of the gallbladder off of the gallbladder fossa would be the safest maneuver. Therefore, using cautery, I began dividing the dome from the gallbladder fossa. As this dissection continued posteriorly, I did encounter bleeding from a small artery on the posterior wall. This was first controlled with a laparoscopic clamp. Unfortunately, because of poor positions, it was possible to clip that artery with the clamp in place. Therefore, I introduced another 5 mm port a little bit below the mid epigastric port, and surgical clips were used to control that posterior arterial branch. At that point, with a fair amount of acute inflammatory rind involving the posterior wall of the gallbladder, I did not think it was safe to completely dissected free. Therefore, I used another GO staple load to divide a majority of the gallbladder body and dome away from the remaining stump of the infundibulum and previously divided cystic duct. With the top portion of the gallbladder out of the way, I used electrocautery to divide the remaining portion of inflammatory rind of the gallbladder infundibulum. Essentially, this left a small portion of the cystic neck down onto the cystic duct fenestrated free. The gallbladder portions were removed by way of Endo Catch bags, and the surgical site was then examined. It was copiously irrigated. There was no evidence of any active bleeding. Clips appeared well-placed and seated. Given the dilated common bile duct, I did think it would be prudent to leave a drain in the area. Therefore, I delivered a 15 [place] Dereje drain into the gallbladder fossa by way of the right upper quadrant port site. The mid epigastric port was then closed with a laparoscopic closure device and 0 Vicryl sutures. The remaining ports were all removed under the direct vision of the laparoscope which was then removed out of the umbilical port site. The umbilical port was closed with a [id number] 0 Vicryl suture in addition to the 2 previously placed sutures in this area. Skin and subcutaneous tissues were irrigated, and a surgical stitch was used to hold the right upper quadrant drain in place. The remainder of the ports were then closed with running subcuticular sutures. Bandages were applied, the patient was transferred to the PACU for recovery.
[2024-02-01] MEDS: HYDROmorphone 2 MG/ML SYR 1 MG IVP ×4 (14:14→18:20)
--- NOTE | 2024-02-01 14:23 | NUR.NOTE ---
Nursing Note: Patient was taken to the OR @ 0900 for a cholecysectomy, report given to OR nurse and anesthesia at 0850. Patient has remained in the OR until 14:22 when BRYAN Calabrese called the medical surgical floor to inform this nurse that she had hit PACU.
--- NOTE | 2024-02-01 15:09 | W.ANESPOSTOP ---
Postoperative Evaluation Date, Time and Location Date Performed: 02/01/24 Time Performed: 15:09 Patient Location: Day Surgery Unit Vital Signs Most Recent Imported Vital Signs: Most Recent Vital Signs Temp Pulse Resp BP Pulse Ox 36.6 C 66 15 147/77 H 91 L 02/01/24 14:51 02/01/24 14:51 02/01/24 14:51 02/01/24 14:51 02/01/24 14:51 Pain Score Most Recent Pain Score: Most Recent Pain Score Pain Level 7 02/01/24 14:51 Assessment Mental Status: Arousable with meaningful communication Airway and Respiratory Function: Patent airway with normal (patient baseline) respiratory exam Cardiovascular Function: Hemodynamically Stable Hydration Status: Adequately Hydrated Nausea & Vomiting: No Nausea or Vomiting Pain: Pain is tolerable per patient Peripheral Nerve Block: Patient did not receive a nerve block
[2024-02-01] MEDS: Metoprolol CR 50 MG TABCR PO (20:58)
[2024-02-02 04:09] VITALS: BP 109/51; PULSE 51; RESP 18; TEMP 36.1; O2SAT 97
[2024-02-02] MEDS: PIPERACILLIN/TAZO 3.375 GM in Normal Saline 50 ML IVPB ×2 (04:34→10:20)
[2024-02-02] MEDS: ACETAMINOPHEN 1,000 MG/100 ML BTL 400 MG IVPB (05:15)
[2024-02-02 06:58] LABS: HCT 34.3 % (36.0-46.0); HGB 10.5 g/dL (11.2-15.7); MCH 24.5 pg (27.0-33.0); MCHC 30.6 % (32.0-36.0); MCV 80 fL (80-95); MPV 9.7 fL (8.0-11.0); Platelet Count 193 10^3/uL (130-400); RBC 4.28 10^6/uL (3.93-5.22); RDW 13.5 % (11.7-14.6); RDW-SD 39.5 fL
[2024-02-02 07:14] LABS: ALT 230 U/L (14-59); AST 131 U/L (15-37); Albumin 2.5 g/dL (3.4-5.0); Alkaline Phosphatase 146 U/L (46-116); Anion Gap 9.3 mmol/L (3-11); BUN 6 mg/dL (7-18); Bilirubin, Direct 0.6 mg/dL (0.0-0.2); CO2 26.7 mmol/L (21.0-32.0); CREATININE 0.9 mg/dL (0.55-1.02); Calcium 8.1 mg/dL (8.5-10.1); Chloride 105 mmol/L (98-107); Estimated GFR 77.88 (mL/min/1.73m2); Glucose 122 mg/dL (74-106); Potassium 3.2 mmol/L (3.5-5.1); Sodium 141 mmol/L (136-145); Total Protein 5.7 g/dL (6.4-8.2)
[2024-02-02 07:26] VITALS: BP 128/70; PULSE 57; RESP 17; TEMP 36.6; O2SAT 97
[2024-02-02] MEDS: Normal Saline Flush 10 ML SYR IVP ×2 (10:20→19:17)
--- NOTE | 2024-02-02 10:52 | W.PM.PROGNOT ---
Date of Service Date of service: 02/02/24 Time of Service: 10:52 Assessment and Plan Assessment and plan (1) Choledocholithiasis with acute cholecystitis: Status: Acute Assessment and plan: LFTs all continue to improve, so I think the likelihood of ongoing choledocholithiasis is fairly low here. The surgical drain is little more bloody than I would like to see, but the volume is certainly much lower than yesterday. I will repeat another set of LFTs 1 more time tomorrow, and repeat a CBC. Assuming those things are all okay, then I would anticipate discharge home tomorrow. Subjective Subjective Interval history since last seen: Sosa looks very good this morning. She is tolerating a diet without any issues. She says her pain is pretty well-controlled, but she does have some soreness when she gets up and moves around. She denies any shortness of breath. Exam GI Other: Abdomen is soft and nondistended. Bandages are mostly clean. There is a little bit of serosanguineous staining on the bandage around the surgical drain. Effluent is serosanguineous as well. Objective Last Vital Signs Temp 97.9 F 02/02/24 07:26 Pulse 57 L 02/02/24 07:26 Resp 17 02/02/24 07:26 BP 128/70 02/02/24 07:26 Pulse Ox 97 02/02/24 07:26 Laboratory Results - last 24 hr 02/02/24 06:05 WBC 10.20 RBC 4.28 Hgb 10.5 L Hct 34.3 L MCV 80 MCH 24.5 L MCHC 30.6 L RDW 13.5 Plt Count 193 MPV 9.7 Sodium 141 Potassium 3.2 L Chloride 105 Carbon Dioxide 26.7 Anion Gap 9.3 BUN 6 L Creatinine 0.9 Est GFR (CKD-EPI 2020) 77.88 Glucose 122 H Calcium 8.1 L Total Bilirubin 1.0 Conjugated Bilirubin 0.6 H AST 131 H ALT 230 H Alkaline Phosphatase 146 H Total Protein 5.7 L Albumin 2.5 L Time Spent with Patient Time Spent with Patient: 25-34 minutes Time was spent: preparing to see the patient(eg.review tests), ordering medications,tests, procedures, indepentently interpreting results and counseling the patient
[2024-02-02] MEDS: Acetaminophen 500 MG TAB 1000 MG PO (11:47)
--- NOTE | 2024-02-02 12:09 | RESPIRATORY ---
Pt's own machine to be used HS. Pt is independent with machine. Pt's own Respironics DreamStation Auto-CPAP Min: 4 cmH2O Max: 20 cmH2O No O2 bleed in. Full face mask: Small Pt does not use DME. Obtains equipment through [employer]
[2024-02-02 14:54] VITALS: BP 144/63; PULSE 67; RESP 18; TEMP 36.6; O2SAT 95
[2024-02-02] MEDS: Ketorolac 15 MG/ML VIAL IVP (19:17)
[2024-02-02 19:19] VITALS: BP 121/60; PULSE 71; RESP 18; TEMP 36.4; O2SAT 96
[2024-02-02] MEDS: Amoxicillin 875/Clav. 125 TAB PO (20:27)
[2024-02-02] MEDS: Metoprolol CR 50 MG TABCR PO (20:27)
--- NOTE | 2024-02-03 | DI.MRI_ITS ---
Exam(s) MR ABDOMEN WO EXAM: MR ABDOMEN WO CLINICAL HISTORY: CBD stone TECHNIQUE: Multiplanar multisequence MRI of the Abdomen was performed. MRCP sequences also performed. COMPARISON: CT CT ABDOMEN PELVIS W from 01/29/[address] CHEST PE CTA from 01/29/2024 FINDINGS: Exam limited by motion. Arm atelectasis at the lung bases. Trace right pleural effusion. Liver: Cyst left lobe of liver. Gallbladder: Nondistended. Not well seen. Not well evaluated due to motion. Bile Ducts: Common bile duct measures 9 millimeters. Mild intrahepatic bili to biliary dilatation. Of low signal is noted distally in the common bile duct consistent with stones noted on prior CT. Th e stones are better visualized on the prior CT. Pancreas: Unremarkable. Pancreatic duct not dilated Adrenals: Unremarkable. Kidneys: Unremarkable. Spleen: Unremarkable. Aorta: Unremarkable. Soft Tissues: Unremarkable. Bone: Unremarkable. Lymph Nodes: Unremarkable. Mesentery: No ascites. No focal fluid collection. Bowel: No abnormal dilatation or wall thickening. IMPRESSION: Stones in distal common bile duct. Mild intra and extrahepatic biliary dilatation. The Gallbladder not well seen. DATA REPOSITORY:
[2024-02-03 00:28] VITALS: BP 132/72; PULSE 67; RESP 16; TEMP 36.8; O2SAT 95
[2024-02-03] MEDS: Ketorolac 15 MG/ML VIAL IVP (06:14)
[2024-02-03] MEDS: Normal Saline Flush 10 ML SYR IVP (06:14)
[2024-02-03 07:31] LABS: HGB 10.3 g/dL (11.2-15.7)
[2024-02-03 07:38] VITALS: BP 140/80; PULSE 61; RESP 17; TEMP 36.5; O2SAT 96
[2024-02-03 08:13] LABS: ALT 323 U/L (14-59); AST 275 U/L (15-37); Albumin 2.6 g/dL (3.4-5.0); Alkaline Phosphatase 183 U/L (46-116); Bilirubin, Direct 1.9 mg/dL (0.0-0.2); Bilirubin, Total 2.5 mg/dL (0.2-1.0); Total Protein 5.8 g/dL (6.4-8.2)
[2024-02-03] MEDS: Amoxicillin 875/Clav. 125 TAB PO ×2 (08:16→19:36)
[2024-02-03] MEDS: Acetaminophen 500 MG TAB 1000 MG PO (08:16)
--- NOTE | 2024-02-03 09:27 | PDOC.CMPRO ---
Date of service: 02/03/24 Time of Service: 09:27 Care Management Progress Note Progress Note Text Progress Note Text: S/O: Sosa was lying in bed watching TV when CM met with her. She is polite and easy to engage in conversation. Her pain is well controlled and she is ready to return home and currently wearing her street clothes. She will need a follow up with Surgical Office in a week for drain removal. A: 48 year old female admitted to [facility] on 01/30/24 with Choledocholithiasis Discharge Potential Discharge Needs: Surgical F/U Appt (1 week) Anticipated Barriers to Discharge: None Identified Patient/Family Education Needs: Review discharge instructions, discuss Ask Me Three Transportation: Private vehicle Plan: Discharge home when medically ready. Follow up with Surgical Office in 1 week. No VNA services are anticipated at this time. CM will follow. SDOH(Care Management) Screening Will the Patient Participate in the Screening?: Yes Do you worry about having a steady place to live?: no In the past 12 months, have you had to go without electric, gas, oil or water in your home?: no Have you or anyone in your house had to go without enough food to eat?: no Has lack of transportation kept you from medical appointments or from doing things needed for daily living?: no Has anyone in your support network made you feel unsafe for any reason?: no Social Determinants of Health Comments(SDOH Details): denies any concerns
--- NOTE | 2024-02-03 10:01 | W.PM.PROGNOT ---
Date of Service Date of service: 02/03/24 Time of Service: 10:01 Assessment and Plan Assessment and plan (1) Choledocholithiasis with acute cholecystitis: Status: Acute Assessment and plan: POD #1 s/p laproscopic Cholecystectomy with Dr. Bronson Pain is well controlled Tolerating a Regular, fat restricted diet Will d/c on PO abx Strongly encouraged ambulation and sitting in the chair She will need to be seen in the surgical office early next week for follow up and drain removal. tentative d/c home later today Subjective Subjective Interval history since last seen: Patient reports that she is feeling well this morning. She states she is ready to return home. Denies any nausea or vomiting. She states she has been participating in drain management. Exam Const General: cooperative, healthy appearing and comfortable Orientation: alert and oriented x3 GI Inspection: normal to inspection Other: Incisions with dressings in place LILIA drain in place with serosanginous drainage. Objective Last Vital Signs Temp 36.5 C 02/03/24 07:38 Pulse 61 02/03/24 07:38 Resp 17 02/03/24 07:38 BP 140/80 02/03/24 07:38 Pulse Ox 96 02/03/24 07:38 Laboratory Results - last 24 hr 02/03/24 06:11 Hgb 10.3 L Total Bilirubin 2.5 H Conjugated Bilirubin 1.9 H AST 275 H ALT 323 H Alkaline Phosphatase 183 H Total Protein 5.8 L Albumin 2.6 L Time Spent with Patient Time Spent with Patient: <25 minutes Time was spent: preparing to see the patient(eg.review tests), obtaining and/or reviewing separately otained hiistory and counseling the patient
--- NOTE | 2024-02-03 12:20 | PDOC.CMDIS ---
Date of service: 02/03/24 Time of Service: 12:20 LACE Index Scoring Tool Questions: Length of Stay (in days): 4 - 6 Was the patient admitted via the E.D.?: Yes E.D. Visits: 1 Answers: Total Score: 8 Risk of Readmission: Low Risk Care Management Discharge Plan Reason for Hospitalization: Choledocholithiasis Discharge Plan: Discharge home with outpatient follow up with community providers. Follow up with Surgical Office in 1 week. No VNA services are ordered prior to discharge. Transportation is provided by family. Patient/Family Education Needs: Review discharge instructions, limitations, medications and plan to follow up with community providers. Discuss ask me three. SDOH Health Related Social Needs: No Data to Display
[2024-02-03] MEDS: LORazepam 1 MG TAB PO (14:35)
[2024-02-03 15:19] VITALS: BP 146/77; PULSE 60; RESP 18; TEMP 36.8; O2SAT 96
[2024-02-03] MEDS: Metoprolol CR 50 MG TABCR PO (19:35)
[2024-02-03 19:45] VITALS: BP 152/82; PULSE 72; RESP 20; TEMP 36.7; O2SAT 98
[2024-02-03 23:16] VITALS: BP 143/78; PULSE 62; RESP 18; TEMP 36.3; O2SAT 97
[2024-02-04 07:34] VITALS: BP 145/81; PULSE 63; RESP 17; TEMP 37; O2SAT 98
[2024-02-04] MEDS: Amoxicillin 875/Clav. 125 TAB PO ×2 (07:38→20:21)
[2024-02-04 08:36] LABS: ALT 360 U/L (14-59); AST 274 U/L (15-37); Albumin 2.8 g/dL (3.4-5.0); Alkaline Phosphatase 234 U/L (46-116); Bilirubin, Direct 1.8 mg/dL (0.0-0.2); Bilirubin, Total 2.3 mg/dL (0.2-1.0); Lipase 36 U/L (16-77); Total Protein 6.4 g/dL (6.4-8.2)
[2024-02-04 10:52] LABS: Abs Immature Grans 0.06 10^3/uL (0.0-0.06); Absolute Basophil Count 0.07 10^3/uL (0.0-0.2); Absolute Eosinophil Count 0.26 10^3/uL (0.0-0.7); Absolute Neutrophil Count 4.82 10^3/uL (1.2-6.7); Eosinophils % 3.6 %; HCT 36.1 % (36.0-46.0); Immature Grans % 0.8 %; Lymphocytes % 21.9 %; MCH 24.6 pg (27.0-33.0); MCHC 30.5 % (32.0-36.0); MCV 81 fL (80-95); MPV 9.7 fL (8.0-11.0); Monocytes % 6.8 %; Neutrophils % 65.9 %; Platelet Count 239 10^3/uL (130-400); RBC 4.47 10^6/uL (3.93-5.22); RDW-SD 40.8 fL; WBC 7.31 10^3/uL (4.4-10.8)
--- NOTE | 2024-02-04 10:54 | CMPROGNOTE_ITS ---
Date of service: 02/04/24 Time of Service: 10:54 Care Management Progress Note Progress Note Text Progress Note Text: S/O: Sosa was lying in bed watching TV when CM met with her. She is planning on going to [facility] for an ERCP planned for tomorrow. Per RN, [facility] is arranged for 1030. CM will follow. A: 48 year old female admitted to [facility] on 01/30/24 with Choledocholithiasis Discharge Anticipated Barriers to Discharge: None Identified Patient/Family Education Needs: Review discharge instructions, discuss Ask Me Three Transportation: Private vehicle Plan: Discharge home when medically ready. Follow up with Surgical Office in 1 week. No VNA services are anticipated at this time. CM will follow. SDOH(Care Management) Screening Will the Patient Participate in the Screening?: Yes Do you worry about having a steady place to live?: no In the past 12 months, have you had to go without electric, gas, oil or water in your home?: no Have you or anyone in your house had to go without enough food to eat?: no Has lack of transportation kept you from medical appointments or from doing things needed for daily living?: no Has anyone in your support network made you feel unsafe for any reason?: no Social Determinants of Health Comments(SDOH Details): denies any concerns
--- NOTE | 2024-02-04 13:27 | PHA.REVIEW2 ---
Pharmacy Admission Review Admission Clinical Review Admission Pharmacy Review: Choledocholithiasis with acute cholecystitis (Acute) Sulfa (Sulfonamide Antibiotics) Adverse Reaction (Intermediate, Verified 01/30/24 00:29) GI problems Resuscitation Status Full Code Height 5 ft 7.5 in Weight 147.145 kg Comments Comments/Follow Ups: POD #5, being sent to [facility] for ERCP today Pharmacy Admission Review Renal Dosing Renal Dosing: BUN 6 mg/dL (7-18) L 02/02/24 06:05 Creatinine 0.9 mg/dL (0.55-1.02) 02/02/24 06:05 Medications needing adjustments: Reviewed (CrCl 113.93 mL/min) List of meds needing interventions: Current medications are okay Anticoagulation Anticoagulation: Hgb 11.0 g/dL (11.2-15.7) L 02/04/24 06:27 Hct 36.1 % (36.0-46.0) 02/04/24 06:27 Plt Count 239 10^3/uL (130-400) 02/04/24 06:27 Creatinine 0.9 mg/dL (0.55-1.02) 02/02/24 06:05 DVT Prophylaxis: Reviewed (SCDs) Opiate Usage Evaluate Pain Scale/Pains Meds: Reviewed (PRN hydromorphone - 2 doses given) Scheduled Bowel Reg ordered if on Opiates?: No Relevant Labs Relevant Labs: Sodium 141 mmol/L (136-145) 02/02/24 06:05 Potassium 3.2 mmol/L (3.5-5.1) L 02/02/24 06:05 Chloride 105 mmol/L (98-107) 02/02/24 06:05 Electrolytes, C-Reactive P, ESR: Reviewed (Hgb increased from 10. to 11, AST/ALT 274/360 (increased)) Cardiac Review Cardiac Review: Troponin I < 50 ng/L (< or =60) 01/29/24 18:52 NT-Pro-B Natriuret Pep 178 pg/mL (<300) 01/29/24 18:52 BP, HR, EF%: Reviewed (BP 145/81 and HR WNL) QTc Review QTc: Reviewed (419 from 01/29/24) IV to PO Switch IV Medications: Reviewed (Hydromorphone and ondansetron) Home Meds Home Med List reviewed: Reviewed Relevent Home Meds Not ordered & why?: Lisinopril - patient currently NPO Current Meds Current Medication Order Review: Reviewed Pharmacy Antibiotic Review Relevant Labs: WBC 7.31 10^3/uL (4.4-10.8) 02/04/24 06:27 Procalcitonin < 0.1 ng/mL 01/29/24 18:52 Temperature 37.0 C Pharmacy Antibiotic Activity: Reviewed, no change Comments: Patient is on Augmentin PO, day 2 for choledocholithiasis Comments Comments/Follow Ups: POD #5, being sent to [facility] for ERCP today
[2024-02-04 15:31] VITALS: BP 128/69; PULSE 68; RESP 16; TEMP 36.8; O2SAT 96
--- NOTE | 2024-02-04 17:14 | W.PM.PROGNOT ---
Date of Service Date of service: 02/04/24 Time of Service: 17:14 Assessment and Plan Assessment and plan (1) Choledocholithiasis with acute cholecystitis: Status: Acute Assessment and plan: I explained to Sosa that [facility] was not able to accommodate us today, and I apologize for the inconvenience of trying to schedule the ERCP at another facility. I think she has a good understanding of the nature of the situation. Will give her some food tonight, and I did talk to Dr. Ott at [facility] again today. I am told that she will be able to go down tomorrow at noon and have the procedure completed. Assuming she does okay, and if the drain output remains low, we can hopefully get her discharged sometime later tomorrow. Subjective Subjective Interval history since last seen: We anticipated transfer Sosa down to [facility] today for the ERCP to clear her common bile duct. Unfortunately, that procedure could not be conducted. Otherwise Sosa has been doing great. Her pain has been pretty well-controlled. Surgical drain output is decreased, and overall she is feeling well. Exam GI Other: Her abdomen is soft and nondistended. The incisions are clean. The drain effluent is serosanguineous. Objective Last Vital Signs Temp 98.2 F 02/04/24 15:31 Pulse 68 02/04/24 15:31 Resp 16 02/04/24 15:31 BP 128/69 02/04/24 15:31 Pulse Ox 96 02/04/24 15:31 Laboratory Results - last 24 hr 02/04/24 02/04/24 05:35 06:27 WBC 7.31 RBC 4.47 Hgb 11.0 L Hct 36.1 MCV 81 MCH 24.6 L MCHC 30.5 L RDW 14.0 Plt Count 239 MPV 9.7 Immature Gran % 0.8 Neutrophils % 65.9 Lymphocytes % 21.9 Monocytes % 6.8 Eosinophils % 3.6 Basophils % 1.0 Nucleated RBC % 0.0 Absolute Neutrophils 4.82 Absolute Lymphocytes 1.60 Absolute Monocytes 0.50 Absolute Eosinophils 0.26 Absolute Basophils 0.07 Total Bilirubin 2.3 H Conjugated Bilirubin 1.8 H AST 274 H ALT 360 H Alkaline Phosphatase 234 H Total Protein 6.4 Albumin 2.8 L Lipase 36 Time Spent with Patient Time Spent with Patient: >50 minutes Time was spent: preparing to see the patient(eg.review tests), referring, communicating with other health auto care center manager, counseling the patient and care coordination
[2024-02-04] MEDS: Metoprolol CR 50 MG TABCR PO (20:21)
[2024-02-04 23:49] VITALS: BP 137/73; PULSE 66; RESP 17; TEMP 36.7; O2SAT 97
[2024-02-05 07:14] LABS: Abs Immature Grans 0.05 10^3/uL (0.0-0.06); Absolute Basophil Count 0.05 10^3/uL (0.0-0.2); Absolute Eosinophil Count 0.18 10^3/uL (0.0-0.7); Absolute Lymphocyte Count 0.92 10^3/uL (1.2-3.4); Absolute Monocyte Count 0.43 10^3/uL (0.1-0.8); Absolute Neutrophil Count 3.78 10^3/uL (1.2-6.7); Basophils % 0.9 %; Eosinophils % 3.3 %; HCT 32.5 % (36.0-46.0); Immature Grans % 0.9 %; MCH 24.4 pg (27.0-33.0); MCHC 30.8 % (32.0-36.0); MCV 80 fL (80-95); MPV 9.8 fL (8.0-11.0); Monocytes % 7.9 %; Nucleated RBC 0.4 % (0.0-0.3); Platelet Count 232 10^3/uL (130-400); RBC 4.09 10^6/uL (3.93-5.22); RDW 14.2 % (11.7-14.6); RDW-SD 41.1 fL; WBC 5.41 10^3/uL (4.4-10.8)
[2024-02-05 07:45] VITALS: BP 143/67; PULSE 67; RESP 17; TEMP 36.6; O2SAT 97
[2024-02-05 07:48] LABS: ALT 311 U/L (14-59); AST 241 U/L (15-37); Albumin 2.6 g/dL (3.4-5.0); Alkaline Phosphatase 250 U/L (46-116); Bilirubin, Direct 2.4 mg/dL (0.0-0.2); Lipase 33 U/L (16-77); Total Protein 5.9 g/dL (6.4-8.2)
[2024-02-05] MEDS: Amoxicillin 875/Clav. 125 TAB PO ×2 (08:06→20:08)
--- NOTE | 2024-02-05 08:42 | CMPROGNOTE_ITS ---
Date of service: 02/05/24 Time of Service: 08:42 Care Management Progress Note Progress Note Text Progress Note Text: S/O: Sosa was lying in bed watching TV when CM met with her. She was planning on having an ERCP at [facility] this morning, however [facility] needed to reschedule it for tomorrow. Procedure is at 1030, [facility] will be here at 9am. Sosa is visibly frustrated with this change, but agreeable. CM will follow. A: 48 year old female admitted to [facility] on 01/30/24 with Choledocholithiasis Discharge Plan: Discharge home when medically ready. Follow up with Surgical Office in 1 week. No VNA services are anticipated at this time. CM will follow. SDOH(Care Management) Screening Will the Patient Participate in the Screening?: Yes Do you worry about having a steady place to live?: no In the past 12 months, have you had to go without electric, gas, oil or water in your home?: no Have you or anyone in your house had to go without enough food to eat?: no Has lack of transportation kept you from medical appointments or from doing things needed for daily living?: no Has anyone in your support network made you feel unsafe for any reason?: no Social Determinants of Health Comments(SDOH Details): denies any concerns
[2024-02-05 15:28] VITALS: BP 131/79; PULSE 71; RESP 16; TEMP 36.5; O2SAT 97
[2024-02-05 18:27] LABS: Lab Add On Test DONE
[2024-02-05 18:52] LABS: Ferritin 28 ng/mL (8-252)
[2024-02-05 20:01] VITALS: BP 142/74; PULSE 77; RESP 16; TEMP 36.1; O2SAT 96
[2024-02-05] MEDS: Metoprolol CR 50 MG TABCR PO (20:08)
--- NOTE | 2024-02-05 21:00 | W.PM.PROGNOT ---
Date of Service Date of service: 02/05/24 Time of Service: 21:00 Assessment and Plan Assessment and plan (1) Choledocholithiasis with acute cholecystitis: Status: Acute (2) HTN (hypertension): (3) Obesity: (4) S/P laparoscopic cholecystectomy: Assessment and plan: POD#4 from lap praveena. Drain is removed today Patient is doing well other than she has a common bile duct stone. LFTs and total bilirubin continue to rise. Her lipase is normal. Augmentin D#4 Patient started her period today and has a history of iron deficiency due to menorrhagia/DU B. Will check a ferritin today -Unfortunately we have had difficulty getting her to a tertiary center for an ERCP. Patient is on tentatively on the schedule at [facility]. [facility] had no availability. Paperwork is completed and transportation arranged. Hopefully [facility] can accommodate us tomorrow. Patient is very frustrated Hopefully we can get her stones extracted tomorrow and she will not have any problems with postprocedural pancreatitis and he can be discharged home Friday. This document was created with voice activated software and may contain errors. 30 mins spent in direct pt care and 15 in non face to face time (5) Choledocholithiasis with obstruction: Status: Acute Subjective Subjective Interval history since last seen: Pt is doing well. no headaches. No CP or SOB. no productive cough. no dysuria. no leg pain or swelling. She is tolerating a low-fat diet. She is having no nausea or vomiting. She is up walking. She is having mild incisional tenderness that is controlled on oral medication. Her LILIA has only been serous. I did remove this today. Exam Narrative Exam Narrative: PHYSICAL EXAM GENERAL APPEARANCE: Alert, healthy appearance, oriented, x 3,? in no acute distress HYDRATION: Well hydrated HEAD, EYES, EARS, NECK, THROAT: Head is normocephalic, pupils equal, round, reactive to light and accommodation, ocular movement intact, + jaundice. ?Dentition intact. No sore throat.? No jaw pain. No thrush LUNGS: normal respiration/normal chest excursion. ?Clear to auscultation bilaterally. ?No wheeze. ?HEART: Regular rate and rhythm. no murmurs EXTREMITY: No edema or cyanosis.? no leg pain, redness, swelling.? ABDOMEN: Incisions are clean dry and intact with no redness drainage or swelling. She has good bowel sounds. She has mild normal incisional pain. LILIA has been putting out 30 to 40 cc per 24 hours. This is removed today without incident. Objective Last Vital Signs Temp 36.1 C L 02/05/24 20:01 Pulse 77 02/05/24 20:01 Resp 16 02/05/24 20:01 BP 142/74 H 02/05/24 20:01 Pulse Ox 96 02/05/24 20:01 Laboratory Results - last 24 hr 02/05/24 02/05/24 06:36 Unknown WBC 5.41 RBC 4.09 Hgb 10.0 L Hct 32.5 L MCV 80 MCH 24.4 L MCHC 30.8 L RDW 14.2 Plt Count 232 MPV 9.8 Immature Gran % 0.9 Neutrophils % 70.0 Lymphocytes % 17.0 Monocytes % 7.9 Eosinophils % 3.3 Basophils % 0.9 Nucleated RBC % 0.4 H Absolute Neutrophils 3.78 Absolute Lymphocytes 0.92 L Absolute Monocytes 0.43 Absolute Eosinophils 0.18 Absolute Basophils 0.05 Ferritin 28 Total Bilirubin 3.0 H Conjugated Bilirubin 2.4 H AST 241 H ALT 311 H Alkaline Phosphatase 250 H Total Protein 5.9 L Albumin 2.6 L Lipase 33 Add-On Test Request DONE Time Spent with Patient Time Spent with Patient: 35-49 minutes Time was spent: preparing to see the patient(eg.review tests), obtaining and/or reviewing separately otained hiistory, ordering medications,tests, procedures, referring, communicating with other health field care manager, indepentently interpreting results, counseling the patient and care coordination
[2024-02-05] MEDS: IRON SUCROSE COMPLEX 200 MG in Normal Saline 100 ML 400 MG IVPB (22:19)
[2024-02-06 07:31] VITALS: BP 134/77; PULSE 74; RESP 17; TEMP 36.3; O2SAT 95
[2024-02-06 07:44] LABS: ALT 281 U/L (14-59); AST 186 U/L (15-37); Albumin 2.5 g/dL (3.4-5.0); Alkaline Phosphatase 269 U/L (46-116); Anion Gap 6.9 mmol/L (3-11); BUN 7 mg/dL (7-18); Bilirubin, Total 1.7 mg/dL (0.2-1.0); CO2 28.1 mmol/L (21.0-32.0); CREATININE 0.7 mg/dL (0.55-1.02); Calcium 8.5 mg/dL (8.5-10.1); Chloride 106 mmol/L (98-107); Glucose 139 mg/dL (74-106); Lipase 30 U/L (16-77); Potassium 3.2 mmol/L (3.5-5.1); Sodium 141 mmol/L (136-145); Total Protein 5.6 g/dL (6.4-8.2)
[2024-02-06] MEDS: Normal Saline Flush 10 ML SYR IVP (08:12)
[2024-02-06] MEDS: Amoxicillin 875/Clav. 125 TAB PO ×2 (08:12→19:52)
--- NOTE | 2024-02-06 08:34 | CMPROGNOTE_ITS ---
Date of service: 02/06/24 Time of Service: 08:34 Care Management Progress Note Progress Note Text Progress Note Text: S/O: Sosa went to [facility] [place] for a down and back ERCP today and was unavailable to meet with CM. Discharge is planned for Friday if no issues with postprocedural pancreatitis. CM will follow. A: 48 year old female admitted to [facility] on 01/30/24 with Choledocholithiasis Discharge Plan: Discharge home when medically ready, possibly Friday. Follow up with Surgical Office in 1 week. No VNA services are anticipated at this time. CM will follow. SDOH(Care Management) Screening Will the Patient Participate in the Screening?: Yes Do you worry about having a steady place to live?: no In the past 12 months, have you had to go without electric, gas, oil or water in your home?: no Have you or anyone in your house had to go without enough food to eat?: no Has lack of transportation kept you from medical appointments or from doing things needed for daily living?: no Has anyone in your support network made you feel unsafe for any reason?: no Social Determinants of Health Comments(SDOH Details): denies any concerns
[2024-02-06 15:35] VITALS: BP 130/76; PULSE 66; RESP 16; TEMP 36.3; O2SAT 97
[2024-02-06 19:50] VITALS: BP 133/74; PULSE 70; RESP 18; TEMP 36.8; O2SAT 95
[2024-02-06] MEDS: Metoprolol CR 50 MG TABCR PO (19:52)
[2024-02-06 22:31] VITALS: RESP 18
[2024-02-07 07:16] LABS: Lipase 29 U/L (16-77)
[2024-02-07 07:25] VITALS: BP 115/65; PULSE 70; RESP 16; TEMP 36.3; O2SAT 95
[2024-02-07 07:54] LABS: ALT 225 U/L (14-59); AST 125 U/L (15-37); Albumin 2.6 g/dL (3.4-5.0); Alkaline Phosphatase 257 U/L (46-116); Bilirubin, Direct 0.7 mg/dL (0.0-0.2); Bilirubin, Total 1.1 mg/dL (0.2-1.0)
[2024-02-07] MEDS: Amoxicillin 875/Clav. 125 TAB PO (08:11)
--- NOTE | 2024-02-07 09:24 | DSE_ITS ---
Date of service: 02/07/24 Time of Service: 09:24 DS: Diagnosis Discharge Diagnosis (1) Choledocholithiasis with acute cholecystitis: Status: Acute Asessment and Plan: s/p cholecystectomy and s/p ERCP (2) HTN (hypertension): (3) Obesity: (4) S/P laparoscopic cholecystectomy: (5) Choledocholithiasis with obstruction: Status: Acute Discharge Plan Disposition Patient Disposition: Home Condition: Improving Discharge Details Reason For Visit: choledocholithiasis Admit Date/Time: 01/30/24 00:01 Admit Provider: Dejuan Wagner Attending Provider: Dejuan Wagner Primary Care Provider: Sheela Perkins Hospital Course Hospital Course: 48 yo woman came into the ER with acute symptoms and found to have choledocholithiasis. Set up for transfer ERCP. Her procedure got delayed and Bilirubin downtrended and she had an interval lap cholecystectomy. However her bilirubine then uptrended after the procedure and so it was decided she still needed the ERCP. On Hospital day 7 she was taken down and back to for ERCP and then on the morning of Hospital day 8 she was discharged home. Home Meds and New Rx's Prescriptions: No Action metoprolol succinate 100 mg tablet extended release 24 hr 50 mg PO QPM Patient Comments: TAKE 1/2 TABLET BY MOUTH EVERY NIGHT lisinopril 10 mg tablet 10 mg PO DAILY Patient Comments: TAKE 1 TABLET BY MOUTH EVERY DAY Discharge Instructions Additional Instructions: Diet: As tolerated Activity: As tolerated Medications: Take your usual home medications Pain: Take Tylenol as needed Followup: Call and schedule a followup to be seen in 2-3 weeks. Shower: It is okay to shower and tub bathe at this point. Stand Alone Forms: Nursing Discharge Form Referrals: Sheela Perkins [Primary Care Provider] - 02/09/24 8:30 am (This was the only appointment available for a hospital follow up. ) Activity:: Activity as Tolerated Equipment/Supplies:: No Equipment Needed Diet:: As Tolerated DS: Summary Time Spent with Patient providing and/or coordinating discharge services: Less than 30 minutes Status at Discharge Functional status at discharge: independent ambulation Overall status at discharge: patient is back to baseline Mental Status: mental status grossly normal Speech and Movement: speech and movement normal Mood: congruent mood Affect: normal affect Quality:SDOH Health Related Social Needs: No Data to Display Exam Narrative Exam Narrative: Reportedly HD stable and ready for discharge. No complaints. Tolerating PO. Wants to go home. Psych Mental Status: mental status grossly normal Speech and Movement: speech and movement normal Mood: congruent mood Affect: normal affect DS: Data Vitals/I&O Vitals and I&O: Vital Signs Temperature 97.3 F L 02/07/24 07:25 Temperature Source Temporal Artery Scan 02/07/24 07:25 Pulse 70 02/07/24 07:25 Pulse Rhythm Regular 02/06/24 19:50 Respiratory Rate 16 02/07/24 07:25 Respiratory Effort Normal, Non-Labored 02/06/24 23:46 Respiratory Depth Normal 02/06/24 23:46 Respiratory Pattern Normal 02/06/24 23:46 Blood Pressure 115/65 02/07/24 07:25 Blood Pressure Position Sitting 01/29/24 16:30 Pulse Oximetry 95 02/07/24 07:25 Respiratory End-tidal CO2 33 02/01/24 14:51 Oxygen Delivery Method Room Air 02/07/24 07:25 Oxygen Flow Rate 0 02/07/24 07:25 Fraction of Inspired Oxygen (FIO2) 21 02/06/24 23:46 Pain Level 1 02/07/24 07:25 Comment pT stated just a little achy in the belly. 02/02/24 14:54 Intake & Output 02/06/24 02/06/24 02/07/24 11:59 23:59 11:59 Intake Total 400 / 400 Balance 400 / 400 Intake: Oral 400 / 400 Other: Urine Appearance Clear Comment pt reported she voided pt reported she voided Stool Size Large Voiding Methods Toilet Toilet Data Completed and Pending Labs on day of discharge: Labs from last 24 hours 02/07/24 06:02 Total Bilirubin 1.1 H Conjugated Bilirubin 0.7 H AST 125 H ALT 225 H Alkaline Phosphatase 257 H Total Protein 6.0 L Albumin 2.6 L Lipase 29 PFSH All Active Problems (Updated 02/05/24 @ 21:05 by Ashley Hwang DO) Choledocholithiasis with obstruction (Acute) Choledocholithiasis with acute cholecystitis (Acute) Medical History (Updated 02/05/24 @ 21:05 by Ashley Hwang DO) Dysfunctional uterine bleeding Obesity HTN (hypertension) Uterine fibroid Surgical History (Updated 02/05/24 @ 21:04 by Ashley Hwang DO) S/P laparoscopic cholecystectomy Social History Smoking/Tobacco Use Status: Never Smoking risk assessment performed?: Yes Alcohol Intake: current Drug use: Never Substance use type: does not use Housing: house Do you feel safe at home: Yes Do you feel safe in your relationship?: Yes Female Reproductive History Menstrual Age of Menarche: 11 Duration of menses: >10 days (Now periods are about 2 weeks long) control method: condoms History History 1 Para 1 Hx # Term Pregnancies Multiple births Hx # Pregnancies Ectopic pregnancies AB induced Hx Number of Living Children 1 AB spontaneous Time Spent with Patient Time Spent with Patient: <45 minutes Time was spent: preparing to see the patient(eg.review tests), referring, communicating with other health career resource technician, indepentently interpreting results and care coordination
--- NOTE | 2024-02-07 18:44 | PDOC.CMDIS ---
Date of service: 02/07/24 Time of Service: 18:45 LACE Index Scoring Tool Questions: Length of Stay (in days): 7 - 13 Was the patient admitted via the E.D.?: Yes E.D. Visits: 0 Answers: Total Score: 8 Risk of Readmission: Low Risk Care Management Discharge Plan Reason for Hospitalization: choledocholithiasis Discharge Plan: Sosa returned home with no new services today. Her drove her home via private vehicle. She will follow up with surgical services and her discharge plan of care. Patient/Family Education Needs: Review discharge instructions and limitations, discussion of self care needs including ask me three. SDMO Health Related Social Needs: No Data to Display
== END 2024-02-07 10:56 | disposition home or self-care (01) | DRG 418 ==
LOC: ER 01-30 00:11 → MS 01-30 00:46
PROVIDERS: Physician Assistant; Surgery; Admitting Provider Student in an Organized Health Care Education/Training Program; Emergency Provider Emergency Medicine; PCP Nurse Practitioner Family; Visit Provider Student in an Organized Health Care Education/Training Program
PROC: 0FT44ZZ Resection of Gallbladder, Percutaneous Endoscopic Approach (ICD-10-PCS; CPT 47562; principal; 2024-02-01 08:20)
DX: K80.47 Calculus of bile duct with acute and chronic cholecystitis with obstruction (principal); Z68.43 Body mass index [BMI] 50.0-59.9, adult; K82.8 Other specified diseases of gallbladder; E66.9 Obesity, unspecified; I10 Essential (primary) hypertension; N93.8 Other specified abnormal uterine and vaginal bleeding; D25.9 Leiomyoma of uterus, unspecified; G47.33 Obstructive sleep apnea (adult) (pediatric); E11.42 Type 2 diabetes mellitus with diabetic polyneuropathy
CPT/HCPCS: 47562; 00123; 36415; 71275; 80048; 80053; 80076; 83690; 84145; 85027; 93005; 96361; 96365; 99285; 74177; 74181; 81003; 82248; 82728; 83605; 83880; 84484; 85018; 85025; 85379; 88304; 93010; J0131; J0665; J0690; J1100; J1170; J1756; J1885; J2001; J2405; J2543; J2704; J3475; J3490

== ENCOUNTER 2024-02-13 14:05 | Outpatient (REF) | payer BC, SELFPAY ==
[2024-02-13 14:28] LABS: Abs Immature Grans 0.03 10^3/uL (0.0-0.06); Absolute Basophil Count 0.08 10^3/uL (0.0-0.2); Absolute Eosinophil Count 0.25 10^3/uL (0.0-0.7); Absolute Lymphocyte Count 1.41 10^3/uL (1.2-3.4); Absolute Monocyte Count 0.56 10^3/uL (0.1-0.8); Absolute Neutrophil Count 4.66 10^3/uL (1.2-6.7); Basophils % 1.1 %; Eosinophils % 3.6 %; HCT 36.5 % (36.0-46.0); Immature Grans % 0.4 %; Lymphocytes % 20.2 %; MCH 23.7 pg (27.0-33.0); MCHC 30.1 % (32.0-36.0); MCV 79 fL (80-95); MPV 10.3 fL (8.0-11.0); Neutrophils % 66.7 %; Platelet Count 318 10^3/uL (130-400); RBC 4.64 10^6/uL (3.93-5.22); RDW 15.2 % (11.7-14.6); RDW-SD 41.9 fL; WBC 6.99 10^3/uL (4.4-10.8)
[2024-02-13 14:43] LABS: Iron 24 ug/dL (50-170); Total Iron Binding Capacity 461 ug/dL (250-450); Transferrin Sat 5 % (15-50)
[2024-02-13 14:49] LABS: ALT 111 U/L (14-59); AST 68 U/L (15-37); Albumin 3.5 g/dL (3.4-5.0); Alkaline Phosphatase 156 U/L (46-116); Anion Gap 9.3 mmol/L (3-11); BUN 11 mg/dL (7-18); Bilirubin, Total 0.7 mg/dL (0.2-1.0); CO2 27.7 mmol/L (21.0-32.0); CREATININE 0.7 mg/dL (0.55-1.02); Calcium 9.4 mg/dL (8.5-10.1); Chloride 105 mmol/L (98-107); Ferritin 72 ng/mL (8-252); Glucose 141 mg/dL (74-106); Potassium 4.2 mmol/L (3.5-5.1); Sodium 142 mmol/L (136-145); Total Protein 6.8 g/dL (6.4-8.2)
[2024-02-13 15:08] LABS: Hemoglobin A1C 6.2 % (<5.7)
== END 2024-02-13 14:06 | disposition home or self-care (01) ==
LOC: NCHCN 14:05
PROVIDERS: PCP Nurse Practitioner Family; Visit Provider Nurse Practitioner Family
DX: D64.9 Anemia, unspecified (principal); R71.8 Other abnormality of red blood cells; R73.03 Prediabetes; R74.01 Elevation of levels of liver transaminase levels
CPT/HCPCS: 80053; 82728; 83036; 83540; 83550; 85025

== ENCOUNTER 2024-05-18 09:25 | Outpatient (REF) | payer BC, SELFPAY ==
[2024-05-18 17:02] LABS: ALT 99 U/L (14-59); AST 68 U/L (15-37); Albumin 3.6 g/dL (3.4-5.0); Alkaline Phosphatase 102 U/L (46-116); Anion Gap 5.5 mmol/L (3-11); BUN 8 mg/dL (7-18); Bilirubin, Total 0.55 mg/dL (0.2-1.0); CO2 31.5 mmol/L (21.0-32.0); CREATININE 0.8 mg/dL (0.55-1.02); Calcium 9.4 mg/dL (8.5-10.1); Chloride 103 mmol/L (98-107); Estimated GFR 89.15 (mL/min/1.73m2); Glucose 138 mg/dL (74-106); Potassium 4.5 mmol/L (3.5-5.1); Sodium 140 mmol/L (136-145); Total Protein 6.7 g/dL (6.4-8.2)
== END 2024-05-18 09:26 | disposition home or self-care (01) ==
LOC: NCHCN 09:25
PROVIDERS: PCP Nurse Practitioner Family; Visit Provider Nurse Practitioner Family
DX: R74.01 Elevation of levels of liver transaminase levels (principal)
CPT/HCPCS: 80053